=== PATIENT | male | born 1975 | race Caucasian/White ===

== ENCOUNTER 2018-06-15 13:38 | Emergency (ER) | payer OTHER, MEDICAID, SELFPAY ==
[2018-06-15 13:50] VITALS: BP 132/89; PULSE 80; RESP 18; TEMP 37; O2SAT 100; BMI 25.1
[2018-06-15 15:00] VITALS: BP 134/85; PULSE 65; O2SAT 100
--- NOTE | 2018-06-15 15:12 | ED.ABDPAIN ---
HPI - Abdominal Pain <VITALIY Penn - Last Filed: 06/15/18 22:24> General Chief Complaint: Abdominal Pain Stated Complaint: LEFT SIDE ABD PAIN Time Seen by Provider: 06/15/18 15:12 Source: patient Mode of arrival: ambulatory Limitations: no limitations History of Present Illness HPI narrative: [age] year old healthy male that is a former smoker here for complaint of right-sided abdominal pain that started yesterday. He denies any urinary symptoms. He states his last bowel movement was earlier today and was negative. No nausea or vomiting. He reports increased pain with motion to that area. He denies any trauma to the abdomen. 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 No flank pain. No fevers no chills. No other concerns or complaints at this time. MD complaint: abdominal pain Related Data Home Medications Medication Instructions Recorded Confirmed No Known Home Medications 06/15/18 06/15/18 Allergies Allergy/AdvReac Type Severity Reaction Status Date / Time No Known Drug Allergies Allergy Verified 06/15/18 13:56 Review of Systems <VITALIY Penn - Last Filed: 06/15/18 22:24> Constitutional Denies chills, Denies fever(s), Denies lethargy and Denies weakness Eyes Denies change in vision, Denies eye discharge, Denies irritation and Denies loss of vision ENT Ears, Nose, Mouth, and Throat: Denies change in voice, Denies neck pain and Denies sore throat Cardiovascular Denies chest pain, Denies irregular heart rhythm, Denies lightheadedness, Denies palpitations, Denies dyspnea, Denies dyspnea on exertion and Denies orthopnea Respiratory Denies cough, Denies dyspnea, Denies dyspnea on exertion and Denies wheezing Gastrointestinal Gastrointestinal: Reports abdominal pain Genitourinary Denies hematuria, Denies flank pain, Denies urinary incontinence and Denies urinary urgency Musculoskeletal Denies neck pain Integumentary/Breasts Denies pruritus, Denies erythema, Denies rash and Denies wounds Neurologic Denies confusion, Denies loss of vision and Denies weakness Psychiatric Denies anxiety, Denies confusion, Denies depression, Denies homicidal ideation and Denies suicidal ideation Endocrine Denies palpitations Hematologic/Lymphatic Denies easy bruising Allergic/Immunologic Denies wheezing Exam <VITALIY Penn - Last Filed: 06/15/18 22:24> Initial Vital Signs Initial Vital Signs: Vital Signs Temperature 98.6 F 06/15/18 13:50 Pulse Rate 80 06/15/18 13:50 Respiratory Rate 18 06/15/18 13:50 Blood Pressure 132/89 06/15/18 13:50 Pulse Oximetry 100 06/15/18 13:50 Const General: cooperative and well developed Nutritional Appearance: well nourished Orientation: alert, awake, oriented x3 and not confused [facility] Mouth: oral mucosae normal and moist mucous membranes Eyes Conjunctivae: conjunctivae normal Sclera: sclerae normal Pupils: PERRL EOM: EOM intact bilaterally Neck Neck: normal visual inspection, trachea midline, No lymphadenopathy, No midline deformity and No JVD Lymphatic: No lymphedema Resp Effort & Inspection: normal respiratory effort, able to speak in complete sentences, no respiratory distress and no use of accessory muscles Auscultation: clear to auscultation bilaterally, no rales, no rhonchi and no wheezes Cardio Rate: regular rate Rhythm: regular rhythm Heart Sounds: no click, no gallops, no murmurs and no rubs Pulses: normal peripheral pulses GI Inspection: non-distended Palpation: soft, no hepatosplenomegaly, No guarding, No pulsatile mass and tender (Tenderness to right upper quadrant) Auscultation: normal bowel sounds General: No CVA tenderness Skin General: no rashes or lesions noted, No jaundice and No petechiae Neuro General: alert, oriented x3, gait normal and no focal motor deficits Speech: speech normal <Cely Deng DO - Last Filed: 06/21/18 06:18> Initial Vital Signs Initial Vital Signs: Vital Signs Temperature 98.6 F 06/15/18 13:50 Pulse Rate 80 06/15/18 13:50 Respiratory Rate 18 06/15/18 13:50 Blood Pressure 132/89 06/15/18 13:50 Pulse Oximetry 100 06/15/18 13:50 Course <VITALIY Penn - Last Filed: 06/15/18 22:24> Orders Ordered: Discontinued Medications Sodium Chloride (Normal Saline 0.9%) 1,000 mls @ 1,000 mls/hr IV BOLUS ONE Stop: 06/15/18 16:36 Last Infusion: 06/15/18 16:38 Dose: 0 mls/hr Admin: 06/15/18 15:51 Dose: 1,000 mls/hr Vital Signs - 8 hr 06/15/18 15:00 06/15/18 16:49 06/15/18 17:00 Pulse Rate 65 60 58 L Respiratory Rate 14 Blood Pressure [Right Arm] 134/85 141/89 H 137/81 Pulse Oximetry 100 100 100 <Cely Deng DO - Last Filed: 06/21/18 06:18> Orders Ordered: Discontinued Medications Sodium Chloride (Normal Saline 0.9%) 1,000 mls @ 1,000 mls/hr IV BOLUS ONE Stop: 06/15/18 16:36 Last Infusion: 06/15/18 16:38 Dose: 0 mls/hr Admin: 06/15/18 15:51 Dose: 1,000 mls/hr Vital Signs - 8 hr 06/15/18 15:00 06/15/18 16:49 06/15/18 17:00 Pulse Rate 65 60 58 L Respiratory Rate 14 Blood Pressure [Right Arm] 134/85 141/89 H 137/81 Pulse Oximetry 100 100 100 MDM - Abdominal Pain <VITALIY Penn - Last Filed: 06/15/18 22:24> Lab Data Result diagrams: 06/15/18 15:40 06/15/18 15:40 Lab Results 06/15/18 06/15/18 06/15/18 Range/Units 15:40 15:40 15:40 WBC 6.4 (4.5-11.0) X10^3/uL RBC 4.96 (4.5-5.9) X10^6/uL Hgb 15.6 (13.5-17.5) g/dL Hct 45.5 (41-53) % MCV 91.7 (80-100) fL MCH 31.4 (26-34) PG MCHC 34.3 (30-36) % RDW 12.9 (11.6-14.8) % Plt Count 220 (150-400) X10^3/uL Neut % (Auto) 63.9 (50-75) % Lymph % (Auto) 26.5 (25-40) % Towns % (Auto) 7.2 (3-14) % Eos % (Auto) 1.9 L (2-4) % Baso % (Auto) 0.5 (0-2) % Neut # (Auto) 4100 (3555-3594) /uL PT 10.4 (10.1-12.7) SECONDS INR 1.0 (0.9-1.3) APTT 28 (26.4-36.2) SECONDS Sodium 144 (137-145) mmol/L Potassium 3.9 (3.4-5.1) mmol/L Chloride 99 (98-107) mmol/L Carbon Dioxide 33 H (22-32) mmol/L BUN 13 (9-20) mg/dL Creatinine 1.00 (0.66-1.25) mg/dL Estimated GFR > 60.0 (>60) mL/min BUN/Creatinine Ratio 13.0 (6-22) Glucose 91 (70-100) mg/dL Calcium 9.6 (8.4-10.2) mg/dL Total Bilirubin 0.4 (0.2-1.3) mg/dL AST 30 (17-59) IU/L ALT 37 (21-72) IU/L Alkaline Phosphatase 36 L (38-126) U/L Total Protein 8.2 (6.3-8.2) g/dL Albumin 4.9 (3.5-5.0) g/dL Globulin 3.3 (1.7-4.1) g/dL Albumin/Globulin Ratio 1.5 (1.0-2.8) Lipase 334 H (23-300) U/L Point of care testing: Urine Dip Bedside Urine Glucose Negative Bedside Urine Bilirubin - Negative Bedside Urine Ketone - Negative Urine Specific [place] 1.015 Bedside Urine Occult Blood - Negative Bedside Urine pH 7.5 Bedside Urine Protein - Negative Bedside Urine Urobilinogen - Negative Bedside Urine Nitrite - Negative Bedside Urine Leukocytes - Negative Esterase Imaging Data US - abdomen: Radiologist's impression: [address] [address] Ultrasound Report Signed Patient: Gilles Singleton BMR#: [id number] : 1975Acct:[id number] Age/Sex: 43 / MDate of Service: 06/15/18 Loc: ED Accession Number: [id number] Procedure: US abdomen complete Ordering Provider: Marques Rucker PROCEDURE: US ABDOMEN COMPLETE INDICATIONS: Pain to right upper quadrant TECHNIQUE: Real-time scanning was performed of the abdominal and retroperitoneal organs, with image documentation. COMPARISON: None. FINDINGS: Liver: The liver is normal in size and demonstrates mildly increased echogenicity when compared to the right kidney. No focal liver lesions are identified. Gallbladder: The gallbladder is normal in size. There appears to be a small gallstone within the region of the neck of the gallbladder that measures approximately 6 mm in diameter. This area is not well-seen on this exam, however. Biliary ducts: Intrahepatic bile ducts are non-dilated. Extrahepatic bile duct caliber measures 4 mm. Normal is 6-7 mm or less in diameter, or 10 mm or less post-cholecystectomy. Pancreas: Visualized portions of the pancreas are sonographically normal. Spleen: Spleen is normal in size and homogeneous in echotexture. Kidneys: Kidneys are normal in size and echotexture. Right kidney measures 11.5 cm long; left kidney measures 12.9 cm long. No hydronephrosis or shadowing nephrolithiasis. No solid masses. There is a complex cyst identified involving the mid aspect of the right kidney, which may contain calcifications, measuring approximately 1.7 cm in diameter. Aorta: Visualized aorta is normal in caliber at less than 3 cm. Iliacs: Obscured by bowel gas. IVC: Intrahepatic inferior vena cava is patent. Miscellaneous: No free abdominal fluid. IMPRESSION: 1. Probable cholelithiasis. No evidence of acute cholecystitis. 2. Mild hepatic steatosis. 3. Mildly complex right renal cyst. On a nonemergent basis, a CT renogram is recommended for better characterization. Dictated by: Vernon Melgar M.D. on 06/15/2018 at 15:42 Approved by: Vernon Melgar M.D. on 06/15/2018 at 15:45 MDM Narrative Medical decision making narrative: CBC was obtained was unremarkable. Chem panel shows mildly elevated lipase at 334. Ultrasound of the right upper quadrant was obtained and shows that there is a cholelithiasis however no signs of cholecystitis. Biliary ducts are nondistended. Ultrasound presents with fatty liver. Renal cyst is seen on the right kidney. Otherwise ultrasound is unremarkable. Patient to follow up with primary care provider for evaluation of renal cyst. Pain into right upper quadrant presents as abdominal wall pain. [id number] Tylenol or Motrin as needed for discomfort. Rest area. Follow up with primary care provider next week. Return emergency room for any worsening symptoms. <Cely Deng, - Last Filed: 06/21/18 06:18> Lab Data Lab Results 06/15/18 06/15/18 06/15/18 Range/Units 15:40 15:40 15:40 WBC 6.4 (4.5-11.0) X10^3/uL RBC 4.96 (4.5-5.9) X10^6/uL Hgb 15.6 (13.5-17.5) g/dL Hct 45.5 (41-53) % MCV 91.7 (80-100) fL MCH 31.4 (26-34) PG MCHC 34.3 (30-36) % RDW 12.9 (11.6-14.8) % Plt Count 220 (150-400) X10^3/uL Neut % (Auto) 63.9 (50-75) % Lymph % (Auto) 26.5 (25-40) % Towns % (Auto) 7.2 (3-14) % Eos % (Auto) 1.9 L (2-4) % Baso % (Auto) 0.5 (0-2) % Neut # (Auto) 4100 (9531-7016) /uL PT 10.4 (10.1-12.7) SECONDS INR 1.0 (0.9-1.3) APTT 28 (26.4-36.2) SECONDS Sodium 144 (137-145) mmol/L Potassium 3.9 (3.4-5.1) mmol/L Chloride 99 (98-107) mmol/L Carbon Dioxide 33 H (22-32) mmol/L BUN 13 (9-20) mg/dL Creatinine 1.00 (0.66-1.25) mg/dL Estimated GFR > 60.0 (>60) mL/min BUN/Creatinine Ratio 13.0 (6-22) Glucose 91 (70-100) mg/dL Calcium 9.6 (8.4-10.2) mg/dL Total Bilirubin 0.4 (0.2-1.3) mg/dL AST 30 (17-59) IU/L ALT 37 (21-72) IU/L Alkaline Phosphatase 36 L (38-126) U/L Total Protein 8.2 (6.3-8.2) g/dL Albumin 4.9 (3.5-5.0) g/dL Globulin 3.3 (1.7-4.1) g/dL Albumin/Globulin Ratio 1.5 (1.0-2.8) Lipase 334 H (23-300) U/L Point of care testing: Urine Dip Bedside Urine Glucose Negative Bedside Urine Bilirubin - Negative Bedside Urine Ketone - Negative Urine Specific [place] 1.015 Bedside Urine Occult Blood - Negative Bedside Urine pH 7.5 Bedside Urine Protein - Negative Bedside Urine Urobilinogen - Negative Bedside Urine Nitrite - Negative Bedside Urine Leukocytes - Negative Esterase Discharge Plan Departure Patient Disposition: Home Clinical Impression: Abdominal pain Discharge Date/Time: 06/15/18 18:12 Interventions: ED Discharge Assessment Last Done: 06/15/18 18:11 Instructions: DI for Abdominal Muscle Strain Activity Restrictions/Additional Instructions: Laboratory results today showed mildly elevated lipase otherwise is unremarkable. Ultrasound of the the area pain to the abdomen shows a gallstone however is not appear to pee passing at this timeframe and does not appear that you're gallbladder is inflamed. Signs and symptoms presents as abdominal wall pain. Use [id number] Tylenol or Motrin as needed for any discomfort. Rest area. Follow up with her primary care provider next week. Ultrasound does show a cyst to the right kidney. This will need to be looked at further such as in CT discuss this with your primary care provider. Ultrasound also shows evidence of a fatty liver. Also follow up with primary care provider for this. For any worsening symptoms return to the emergency room. Prescriptions: No Action No Known Home Medications RF: 0 Referrals: Geraldine Dubois PA-C [Primary Care Provider] - <Cely Deng DO - Last Filed: 06/21/18 06:18> Cosign ED Attending Cosignature Attestation: I was immediately available in the department for consultation. This documentation has been reviewed and I agree with assessment and plan. Supervised by Cely Deng DO
--- NOTE | 2018-06-15 15:38 | DI.US.S_ITS ---
PROCEDURE: US ABDOMEN COMPLETE INDICATIONS: Pain to right upper quadrant TECHNIQUE: Real-time scanning was performed of the abdominal and retroperitoneal organs, with image documentation. COMPARISON: None. FINDINGS: Liver: The liver is normal in size and demonstrates mildly increased echogenicity when compared to the right kidney. No focal liver lesions are identified. Gallbladder: The gallbladder is normal in size. There appears to be a small gallstone within the region of the neck of the gallbladder that measures approximately 6 mm in diameter. This area is not well-seen on this exam, however. Biliary ducts: Intrahepatic bile ducts are non-dilated. Extrahepatic bile duct caliber measures 4 mm. Normal is 6-7 mm or less in diameter, or 10 mm or less post-cholecystectomy. Pancreas: Visualized portions of the pancreas are sonographically normal. Spleen: Spleen is normal in size and homogeneous in echotexture. Kidneys: Kidneys are normal in size and echotexture. Right kidney measures 11.5 cm long; left kidney measures 12.9 cm long. No hydronephrosis or shadowing nephrolithiasis. No solid masses. There is a complex cyst identified involving the mid aspect of the right kidney, which may contain calcifications, measuring approximately 1.7 cm in diameter. Aorta: Visualized aorta is normal in caliber at less than 3 cm. Iliacs: Obscured by bowel gas. IVC: Intrahepatic inferior vena cava is patent. Miscellaneous: No free abdominal fluid. IMPRESSION: 1. Probable cholelithiasis. No evidence of acute cholecystitis. 2. Mild hepatic steatosis. 3. Mildly complex right renal cyst. On a nonemergent basis, a CT renogram is recommended for better characterization. Dictated by: Vernon Melgar M.D. on 06/15/2018 at 15:42 Approved by: Vernon Melgar M.D. on 06/15/2018 at 15:45
[2018-06-15 15:49] LABS: Add Manual Diff / Slide Review NO; Basophils Percent Auto 0.5 % (0-2); Eosinophils Percent Auto 1.9 % (2-4); Hematocrit 45.5 % (41-53); Hemoglobin 15.6 g/dL (13.5-17.5); Lymphocytes Percent Auto 26.5 % (25-40); Mean Corpuscular HGB Conc 34.3 % (30-36); Mean Corpuscular Hemoglobin 31.4 PG (26-34); Mean Corpuscular Volume 91.7 fL (80-100); Monocytes Percent Auto 7.2 % (3-14); Neutrophils Absolute Auto 4100 /uL (3000-5900); Neutrophils Percent Auto 63.9 % (50-75); Platelet Count 220 X10^3/uL (150-400); Red Blood Cell Count 4.96 X10^6/uL (4.5-5.9); Red Cell Distribution Width 12.9 % (11.6-14.8); White Blood Cell Count 6.4 X10^3/uL (4.5-11.0)
[2018-06-15] MEDS: SODIUM CHLORIDE 0.9% 1,000 ML 1000 ML IV (15:51)
[2018-06-15 16:00] LABS: Prothrombin Time 10.4 SECONDS (10.1-12.7)
[2018-06-15 16:02] LABS: PTT Partial Thromboplastin Tim 28 SECONDS (26.4-36.2)
[2018-06-15 16:03] LABS: Alanine Aminotransferase 37 IU/L (21-72); Albumin 4.9 g/dL (3.5-5.0); Albumin Globulin Ratio 1.5 (1.0-2.8); Alkaline Phosphatase 36 U/L (38-126); Aspartate Aminotransferase 30 IU/L (17-59); Bilirubin Total 0.4 mg/dL (0.2-1.3); Blood Urea Nitrogen 13 mg/dL (9-20); Calcium 9.6 mg/dL (8.4-10.2); Carbon Dioxide 33 mmol/L (22-32); Chloride 99 mmol/L (98-107); Estimated Glomerular Filt Rate > 60.0 mL/min (>60); Globulin 3.3 g/dL (1.7-4.1); Glucose 91 mg/dL (70-100); HEMOLYSIS < 15 (0-50); Lipase 334 U/L (23-300); Potassium 3.9 mmol/L (3.4-5.1); Sodium 144 mmol/L (137-145); Total Protein 8.2 g/dL (6.3-8.2)
[2018-06-15 16:49] VITALS: BP 141/89; PULSE 60; RESP 14; O2SAT 100
[2018-06-15 17:00] VITALS: BP 137/81; PULSE 58; O2SAT 100
== END 2018-06-15 18:12 | disposition home or self-care (01) ==
PROVIDERS: Emergency Provider Nurse Practitioner Family; PCP Physician Assistant Medical
DX: R10.9 Unspecified abdominal pain (principal)
CPT/HCPCS: 36591; 76700; 80053; 81003; 83690; 85025; 85610; 85730; 96360; 99283; 99284

== ENCOUNTER 2018-07-05 19:48 | Emergency (ER) | payer OTHER, MEDICAID, SELFPAY ==
[2018-07-05 19:48] VITALS: BP 151/97; PULSE 91; RESP 20; TEMP 36.9; O2SAT 95
--- NOTE | 2018-07-05 20:02 | DI.RAD.S_ITS ---
PROCEDURE: XR ANKLE LT MIN 3V INDICATIONS: pain s/p twisting ankle TECHNIQUE: 3 views of the ankle were acquired. COMPARISON: None. FINDINGS: Bones: No fractures or dislocations. Ankle mortise is normally aligned. No suspicious bony lesions. Soft tissues: Small tibiotalar joint effusion. IMPRESSION: #1. No acute fracture or dislocation of the left ankle. Consider followup radiographs in 7-10 days if there is continued clinical concern. #2. Small left ankle joint effusion. Dictated by: Murray Rasmussen M.D. on 07/05/2018 at 21:40 Approved by: Murray Rasmussen M.D. on 07/05/2018 at 21:42
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
[2018-07-05 20:35] VITALS: BP 151/97; PULSE 91; RESP 20; TEMP 36.9; O2SAT 95
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
== END 2018-07-05 20:50 | disposition home or self-care (01) ==
PROVIDERS: Emergency Provider Emergency Medicine; Family Provider Physician Assistant Medical; PCP Physician Assistant Medical
DX: S93.402A Sprain of unspecified ligament of left ankle, initial encounter (principal); S96.912A Strain of unspecified muscle and tendon at ankle and foot level, left foot, initial encounter; W23.0XXA Caught, crushed, jammed, or pinched between moving objects, initial encounter
CPT/HCPCS: 73610; 99283

== ENCOUNTER 2019-04-26 11:24 | Emergency (ER) | payer OTHER, MEDICAID, SELFPAY ==
[2019-04-26 11:30] VITALS: BP 152/97; PULSE 70; RESP 14; TEMP 36.4; O2SAT 98
--- NOTE | 2019-04-26 11:43 | DI.RAD.S_ITS ---
PROCEDURE: XR KNEE LT 3V INDICATIONS: pain / swelling after fall TECHNIQUE: 3 views of the knee were acquired. COMPARISON: [facility], CR, XR KNEE ARTHRITIC SERIES LT, 04/20/2017, 10:18. FINDINGS: Bones: Postsurgical changes are present related to prior ACL reconstruction. No acute fracture or dislocation is identified. No suspicious osseous lesions are present. Soft tissues: There is a large knee joint effusion. Metallic densities along the anterior aspect of the distal thigh and the anterior aspect of the proximal tibia have not changed in position. IMPRESSION: 1. No acute fractures. 2. Prominent knee effusion. The need for better evaluation utilizing MRI may be determined clinically. Dictated by: Vernon Melgar M.D. on 04/26/2019 at 11:07 Approved by: Vernon Melgar M.D. on 04/26/2019 at 11:08
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
--- NOTE | 2019-04-26 12:23 | ED_ITS ---
HPI - Extremity Injury (Lower) <ROOSEVELT PollardP - Last Filed: 04/27/19 02:46> General Chief Complaint: Extremity Injury, Lower Stated Complaint[place] pain Time Seen by Provider: 04/26/19 11:46 Source: patient Mode of arrival: other (crutches) Limitations: no limitations History of Present Illness HPI Narrative: This is a 43-year-old male, nonsmoker, presents with significant other with chief complain of left knee pain. He had injured yesterday after fall when embankment collapsed and he sled down and averted his L foot after his foot caught. Patient reports had a surgery of ACL repair on same knee in the past. He reports unable to bear his weight after the injury because of the pain. He reports had sensation, moved his toes on left foot. He denies any other injuries such as on his head, neck, other musculoskeletal areas. Related Data Home Medications Medication Instructions Recorded Confirmed acyclovir 400 mg PO DAILY 04/26/19 04/26/19 Previous Rx's Medication Instructions Recorded hydrocodone-acetaminophen [[place]] 1 tab PO Q6H PRN #7 tab 04/26/19 Allergies Allergy/AdvReac Type Severity Reaction Status Date / Time No Known Drug Allergies Allergy Verified 06/15/18 13:56 Review of Systems <ROOSEVELT PollardP - Last Filed: 04/27/19 02:46> Review of Systems General: Denies fever, chills, fatigue, malaise, sweats. HEENT: Denies sinus pain, ear pain, sore throat, difficulty swallowing, dizziness. Respiratory: Denies dyspnea, cough, wheezing, hemoptysis, sputum. Cardiovascular: Denies chest pain, palpitations, orthopnea, edema. Gastrointestinal: Denies nausea, vomiting, abdominal pain, diarrhea, constipation, melena. : Denies dysuria, frequency, incontinence, hematuria, urinary retention. Musculoskeletal: See HPI Skin: Denies rash, skin lesions, or other. Neurologic: Denies weakness, headache, numbness, change in speech, confusion, seizures, incoordination. Psychiatric: No concerning psychosocial issues. 12-point review of systems is negative except for those stated above. PFSH <ROOSEVELT PollardP - Last Filed: 04/27/19 02:46> Surgical History (Updated 04/27/19 @ 02:40 by VITALIY Pollard) History of repair of ACL (Chronic) History of surgery on wrist (Chronic) Social History Smoking Status: Former smoker Social History Smoking Status: Former smoker Exam <VITALIY Pollard - Last Filed: 04/27/19 02:46> Narrative Exam Narrative: General appearance: well developed, well nourished, in no acute distress. Head: normocephalic, atraumatic, no scalp lesions, non-tender. Eye: pupil equal, round. EOMI. Nose: nares patent. Oral: mucosa moist. Neck/Thyroid: neck supple, full range of motion, no visible masses. Skin: no suspicious rashes, lesions over visible areas. Warm and dry. Heart: no clubbing, no cyanosis, no edema. Lungs: Breathing even and unlabored. No stridor. No accessory muscles used. Chest: normal shape and expansion. Abdomen: non-obese, non-distended. Neurologic: alert and oriented. Cognitive exam, ENERGY ENGINEER and PNS grossly intact on informal exam. Psych: good eye contact, normal affect. Initial Vital Signs Initial Vital Signs: Vital Signs Temperature 97.5 F L 04/26/19 11:30 Pulse Rate 70 04/26/19 11:30 Respiratory Rate 14 04/26/19 11:30 Blood Pressure 152/97 H 04/26/19 11:30 Pulse Oximetry 98 04/26/19 11:30 Extrem Right lower extremity: normal to inspection Left lower extremity: knee Details: abnormal to inspection, tenderness, swelling (anterior medial aspect) and abnormal ROM; no abrasions, no lacerations, no ecchymosis and no unusual warmth and foot Details: normal capillary refill, normal to inspection, toes with normal ROM, no edema and motor-sensory exam; no tenderness and no unusual warmth <Micah Mendez DO - Last Filed: 04/27/19 07:34> Initial Vital Signs Initial Vital Signs: Vital Signs Temperature 97.5 F L 04/26/19 11:30 Pulse Rate 70 04/26/19 11:30 Respiratory Rate 14 04/26/19 11:30 Blood Pressure 152/97 H 04/26/19 11:30 Pulse Oximetry 98 04/26/19 11:30 Procedures <VITALIY Pollard - Last Filed: 04/27/19 02:46> Orthopedic Splinting/Casting Injury #1: Side: left Lower Extremity Injury Location: knee Lower Extremity Immobilizer: knee immobilizer Additional Comments: Pt has own crutches Course <VITALIY Pollard - Last Filed: 04/27/19 02:46> Orders Ordered: Discontinued Medications Hydrocodone Bitart/Acetaminophen ([place] 5/325) 1 tab PO NOW ONE Stop: 04/26/19 12:26 Last Admin: 04/26/19 12:35 Dose: 1 tab Vital Signs - 8 hr 04/26/19 11:30 Temperature 97.5 F L Pulse Rate 70 Respiratory Rate 14 Blood Pressure 152/97 H Pulse Oximetry 98 <Micah Mendez DO - Last Filed: 04/27/19 07:34> Orders Ordered: Discontinued Medications Hydrocodone Bitart/Acetaminophen ([place] 5/325) 1 tab PO NOW ONE Stop: 04/26/19 12:26 Last Admin: 04/26/19 12:35 Dose: 1 tab Vital Signs - 8 hr 04/26/19 11:30 Temperature 97.5 F L Pulse Rate 70 Respiratory Rate 14 Blood Pressure 152/97 H Pulse Oximetry 98 MDM - Extremity Injury (Lower) <Sin PanchalROOSEVELT ShortP - Last Filed: 04/27/19 02:46> Differential Diagnosis Likely ankle sprain and strain and other (patella dislocation, ACL/MCL injury) Medical Records Attestation: I reviewed the patient's medical records. Imaging Data XR-Knee L: Radiologist's impression: Chart Viewer Diagnostics DATE TYPE STATUS AUTHOR Hx 04/26/19 11:43 Vernon Melgar 07/05/18 20:02 Murray Rasmussen 06/15/18 15:38 Vernon Melgar Garner B 43, M0 1975 REG ER, ED.LOC - Main ED: R13 74.843kg Extremity Injury, Lower Search Chart No Data to Display No Data to Display Today 11:30 Gilles Singleton 43 M [address] [address] XRay Report Signed Patient: Gilles Singleton BMR#: [id number] : 1975Acct:[id number] Age/Sex: 43 / MDate of Service: 04/26/19 Loc: ED Accession Number: [id number] Procedure: XR knee LT 3V Ordering Provider: Micah Mednez D.O. PROCEDURE: XR KNEE LT 3V INDICATIONS: pain / swelling after fall TECHNIQUE: 3 views of the knee were acquired. COMPARISON: [facility], CR, XR KNEE ARTHRITIC SERIES LT, 04/20/2017, 10:18. FINDINGS: Bones: Postsurgical changes are present related to prior ACL reconstruction. No acute fracture or dislocation is identified. No suspicious osseous lesions are present. Soft tissues: There is a large knee joint effusion. Metallic densities along the anterior aspect of the distal thigh and the anterior aspect of the proximal tibia have not changed in position. IMPRESSION: 1. No acute fractures. 2. Prominent knee effusion. The need for better evaluation utilizing MRI may be determined clinically. Dictated by: Vernon Melgar M.D. on 04/26/2019 at 11:07 Approved by: Vernon Melgar M.D. on 04/26/2019 at 11:08 [facility] Narrative Medical decision making narrative: This 43-year-old gentleman who presents with left knee pain in anterior, medial knee. He has some swelling to anterior- medial, superior to patella on right knee. Patient reports pain with weight- bearing and range of motion. He is concerned since he had left knee ACL repair in the past. He denies any other injuries including left foot, ankle. Left knee x-ray was obtained and indicates no acute fractures at this time but there was prominent knee effusion. Patient was placed on the immobilizer. Advised to use ice pack and to use Tylenol and/or Motrin as needed for discomfort and [place] was prescribed for severe pain. Discussed narcotic pain medication precautions with patient. Patient already has crutches at home that he declines a set from ED today. Patient is referred to [facility] orthopedist to follow up and may need further imaging test if his pain persists. No further questions expressed at this time and patient and significant other agree with treatment plan. Discharge Plan Departure Patient Disposition: Home Clinical Impression: Ankle sprain and strain Discharge Date/Time: 04/26/19 12:49 Interventions: ED Discharge Assessment Last Done: 04/26/19 12:49 Instructions: DI for Knee Pain Activity Restrictions/Additional Instructions: You have been diagnosed with [ L knee pain and swelling. According to the xray, there is not fracture, dislocation. However there is some prominent knee effusion. You may need MRI test which can be arranged by your PCP if your pain persists ]. What to do: *Take your medications as directed. Please take [id number] Tylenol and or Motrin as needed for inflammation and pain. He can take B[place]erton as needed for severe pain. This medication contains Tylenol already. Please do not drive, drink alcohol, operate heavy equipment while on B[place]erton. This medication can cause constipation as well. *Follow up with your primary care provider in 2-3 days, call for an appointment. Let them know you were seen in the ED and that we asked you to be seen in follow up. *Return to ED if you have any new, worsening, or concerning symptoms, such as [severe pain, tingling numbness/weakness to your left foot, chest pain, breathing difficulty, unable to tolerate fluids, any acute concerns]. Prescriptions: New hydrocodone-acetaminophen [[place]] 5-325 mg tablet 1 tab PO Q6H PRN (Reason: pain) Qty: 7 RF: 0 No Action acyclovir 400 mg tablet 400 mg PO DAILY RF: 0 Referrals: [facility] [Outside] Geraldine Dubois PA-C [Primary Care Provider] - <Micah Mendez DO - Last Filed: 04/27/19 07:34> [facility] Attestation: I was available for consultation during this patient's emergency department encounter
[2019-04-26] MEDS: HYDROCODONE/ACET 5/325 TABLET 1 TAB PO (12:35)
== END 2019-04-26 12:49 | disposition home or self-care (01) ==
PROVIDERS: Emergency Provider Nurse Practitioner Family; Family Provider Physician Assistant Medical; PCP Physician Assistant Medical
DX: S93.402A Sprain of unspecified ligament of left ankle, initial encounter (principal); S96.912A Strain of unspecified muscle and tendon at ankle and foot level, left foot, initial encounter
CPT/HCPCS: 73562; 99283

== ENCOUNTER 2019-08-23 07:53 | Day surgery (SDC) | payer OTHER, MEDICAID, SELFPAY ==
--- NOTE | 2019-08-23 | PATH_ITS ---
[facility] Accession Number: [id number] . 01 Material submitted: . PART A: colon - RIGHT COLON BIOPSIES PART B: colon - TRANSVERSE COLON BIOPSIES PART C: colon - DESCENDING COLON BIOPSIES PART D: colon - RECTAL SIGMOID BIOPSIES . 02 Diagnosis: A-D: Right Colon, Transverse Colon, Descending Colon, Rectosigmoid, Biopsies: Colonic mucosa with no diagnostic abnormality. Negative for active, chronic, and microscopic colitis. Negative for dysplasia and malignancy. . MRV 08/26/2019 1017 Local . 02 Electronically signed: . Patricia Steele MD, Pathologist NPI- [id number] . 01 Gross description: . Part A: RIGHT COLON BIOPSIES: Received in formalin are 2 fragment(s) of belle, soft tissue measuring 0.3 x 0.2 x 0.2 cm to 0.2 x 0.1 x 0.1 cm submitted entirely in 1 cassette(s) Part B: TRANSVERSE COLON BIOPSIES: Received in formalin is 1 fragment(s) of belle, soft tissue measuring 0.3 x 0.2 x 0.2 cm submitted entirely in 1 cassette(s) Part C: DESCENDING COLON BIOPSIES: Received in formalin are 3 fragment(s) of belle, soft tissue measuring 0.3 x 0.2 x 0.2 cm to 0.3 x 0.2 x 0.1 cm submitted entirely in 1 cassette(s) Part D: RECTAL SIGMOID BIOPSIES: Received in formalin are 2 fragment(s) of belle, soft tissue measuring 0.3 x 0.2 x 0.2 cm to 0.2 x 0.1 x 0.1 cm submitted entirely in 1 cassette(s) /QBJ 08/23/20192049 Local . 02 Pathologist provided ICD-10: R10.9 . 02 CPT . 186547, 586197, 046021, 516635 Performed at: 01 [facility] [address] [place] [address], [place], [place] [id number] MD Elvis Donis MD Phone: [phone] Performed at: 02 [facility] [address] [place], [place] [id number] MD Patricia Steele MD Phone: [phone]
[2019-08-23 08:04] VITALS: BP 129/90; PULSE 63; RESP 16; TEMP 36.6; O2SAT 99; BMI 20.8
[2019-08-23] MEDS: SODIUM CHLORIDE 0.9% 1,000 ML 200 ML IV (08:38)
--- NOTE | 2019-08-23 09:07 | PM.PREOP ---
Pre-operative Note Interval Note History & Physical reviewed/Exam performed by Physician: Yes Changes to H&P: No ASA Class (for procedural sedation): II
--- NOTE | 2019-08-23 09:51 | PM.OP.ENDO ---
Operative Date/Time/Diagnoses Date of procedure: 08/23/19 Time of procedure: 09:51 Pre-op diagnosis: Chronic abdominal pain, questionable history of diverticulosis Post-op diagnosis: other (Normal appearing colon, no diverticula, low-grade hemorrhoids) Procedure & Clinicians Study performed: Colonoscopy, random biopsies from ascending, transverse, descending, and rectosigmoid colon Same procedure as scheduled: Yes Indications: Chronic abdominal pain Surgeon: Zoe Christina Procedure Notes SCOAP/Timeout: Performed Procedure in detail: The patient was brought to the room and placed in left lateral decubitus position with all bony prominences padded. A time-out was performed and then the patient was given procedural sedation starting with 4 mg of Versed and 100 mcg of fentanyl. A total of 7 mg of Versed and 200 micro g of fentanyl were given during the course of the procedure. Vitals were monitored throughout the procedure and remained stable. Once adequately sedated the procedure was begun. A rectal exam was performed revealing no abnormalities. The colonoscope was then introduced to the rectum and advanced to the cecum in the usual fashion. The cecum was identified by the appendiceal orifice, the mucosal try fold, and the ileocecal valve. The scope was then retracted while rotating side to side and examining each mucosal fold. The colonic mucosa appeared normal. Random biopsies were taken from right colon, transverse, descending colon, and rectosigmoid. The colon was very twisted and redundant, but otherwise appeared normal. At the conclusion procedure retroflexion was performed and small grade 1-2 internal hemorrhoids without stigmata of bleeding were seen. The scope was then withdrawn from the rectum the procedure was concluded. The patient tolerated the procedure well was transferred to the PACU in stable condition. Scope withdrawal time: 14 Sedation minutes: 28 Specimen(s): other (Random biopsies from ascending, transverse, descending, and rectosigmoid colon) Complications: none Impression: Normal appearing colonic mucosa Post-procedure Recommendations: Colonscopy in 10 years (Depending on pathology results) Follow up: as needed Disposition: PACU
[2019-08-23] MEDS: ONDANSETRON 4 MG/2 ML INJ IV (09:54)
[2019-08-23] MEDS: fentaNYL 250 MCG/5 ML INJ IV (09:54)
[2019-08-23] MEDS: MIDAZOLAM 5 MG/5 ML VIAL IV (09:54)
[2019-08-23 09:56] VITALS: BP 147/97; PULSE 56; RESP 20; TEMP 36.5; O2SAT 100
[2019-08-23 10:01] VITALS: BP 147/98; PULSE 63; RESP 18; O2SAT 100
[2019-08-23 10:06] VITALS: BP 131/90; PULSE 64; RESP 19; O2SAT 98
[2019-08-23 10:11] VITALS: BP 121/83; PULSE 64; RESP 20; TEMP 36.5; O2SAT 98
[2019-08-23 10:16] VITALS: BP 130/85; PULSE 64; RESP 15; TEMP 36.4; O2SAT 100
== END 2019-08-23 10:33 | disposition home or self-care (01) ==
PROVIDERS: Family Provider Physician Assistant Medical; PCP Physician Assistant Medical; Visit Provider Surgery
PROC: 0DJD8ZZ Inspection of Lower Intestinal Tract, Via Natural or Artificial Opening Endoscopic (ICD-10-PCS; CPT 45378; principal; 2019-08-23 09:15)
DX: R10.12 Left upper quadrant pain (principal); K64.0 First degree hemorrhoids
CPT/HCPCS: 45380; 99152; 99153; J2250; J2405; J3010

== ENCOUNTER 2020-06-12 08:15 | Outpatient (RCR) | payer OTHER, MEDICAID, SELFPAY ==
--- NOTE | 2020-05-04 15:36 | PT.OIE ---
Current Diagnoses Complex tear of medial meniscus, current injury, left knee, subsequent encounter (05/04/20) Sprain of anterior cruciate ligament of left knee, subsequent encounter (05/04/20) Past Surgical History (Last Reviewed 08/20/19 @ 17:48 by Zoe Christina MD) History of repair of ACL (Chronic) History of surgery on wrist (Chronic) Visit Care Team Role Provider Type Geraldine Dubois PA-C Family Provider Non-Staff Primary Care Provider Specialty: Medical Address: [facility] [address], [place], [address] Email: Raza Decker Attending Provider Non-Staff Referring Provider Specialty: Medical Address: [facility] [address], [place], [address] Email: Physical Therapy Initial Evaluation PT-OP-A Visit Information Start: 05/01/20 07:21 Freq: Status: Active Protocol: Document 05/04/20 07:26 MB (Rec: 05/04/20 08:07 MB [id number]) Out-Patient Physical Therapy Visit Information Visit Information Visit Type Initial Evaluation Visit Note [employer], eval charge only for eval Visit Start Time 07:30 Visit Stop Time 08:10 Total Visit Minutes 40 Visit Number 1 Evaluation Information Evaluation Date 05/04/20 PT-OP-B Current Condition Start: 05/01/20 07:21 Freq: Status: Active Protocol: Document 05/04/20 07:26 MB (Rec: 05/04/20 08:07 MB [id number]) Current Condition History of Current Condition Onset Date 1 year Current Complaints Left knee pain History of Current Condition History of left ACL injury and repair 15 years ago. Last summer, [place] [facility] and broke his distal femur, proximal tib fib , tore his ACL and meniscus. He was supposed to have surgery and it was cancelled d /t COVID. He re-injured it in March getting up from the floor . Pt has surgey on March 16. It was exploratory surgery and he had a bad medial meniscus tear and repair. He was on crutches 6 weeks. He went WBAT 6 days ago. He has not used crutches in a week. He was told not to pivot or turn on the left foot. 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 He has a brace. The swelling and internal pain has reduced. He has been icing. Pt rates pain up to 5/ 10 with hyperextension and is in the anterior and medial left knee. He had left ankle injury in the last year. Treatment Goals Patient/Caregiver Goals To get back to work PT-OP-C Subjective Start: 05/01/20 07:21 Freq: Status: Active Protocol: Document 05/04/20 07:26 MB (Rec: 05/04/20 08:14 MB [id number]) OP-PT Subjective Patient Comments Patient Comments See history of current condition Patient Reported Progress Improving Patient Questionnaires Lower Extremity Functional Scale LEFS Score 29 LEFS Impairment 60 to 79% Impaired (Score 17- 31) PT-OP-D Balance Start: 05/01/20 07:21 Freq: Status: Active Protocol: Document 05/04/20 07:26 MB (Rec: 05/04/20 14:15 MB [id number]) OP-PT Balance Assessment Sitting Balance Static Sitting Balance Ability Normal Dynamic Sitting Balance Ability Normal Standing Balance Static Standing Balance Ability Fair Dynamic Standing Balance Ability Fair Balance Tests Romberg Romberg Normal, EC normal Single Limb Standing Single Limb- Right 30 sec Single Limb- Left Unable Wright Fall Scale Copyright Permission PT-OP-G Mobility & Gait Start: 05/01/20 07:21 Freq: Status: Active Protocol: Document 05/04/20 07:26 MB (Rec: 05/04/20 14:15 MB [id number]) OP Gait Assessment Gait Gait Assistance Required: Independent Distance (Feet) 75 Assistive Devices Assistive Device None Gait Deviations General Gait Pattern Antalgic,Decreased Stride Length,Decreased Feet Clearance Factors Limiting Gait Function Factors Limiting Gait Function Limited Range of Motion,Pain, Poor Balance Comments Gait Comments Favors the left leg and presents with poor step-length and foot clearance, slow antalgic gait, decreased heel strike and left knee extension PT-OP-J Posture/Palpation/Skin Start: 05/01/20 07:21 Freq: Status: Active Protocol: Document 05/04/20 07:26 MB (Rec: 05/04/20 14:15 MB [id number]) Posture Evaluation Comments Posture Comments Standing: forward head, rounded shoulders, pronounced left patella and left quad and calf atrophy, decreased left knee extension in standing, pt with increased WB to the right foot, B foot supination with decreased Mundo angle, right iliac crest higher than the left and right thoracic convexity spine. Skin Assessment Other Assessments Skin Assessment Comments Scars around the left knee, mild edema with patellar changes PT-OP-K Range of Motion Start: 05/01/20 07:21 Freq: Status: Active Protocol: Document 05/04/20 07:26 MB (Rec: 05/04/20 14:15 MB [id number]) Knee Goniometric Range of Motion Knee Left Knee ROM WFL No Patient Position Supine Flexion Active (degrees) 115 Extension Active (degrees) 4 Right Knee ROM WFL Yes Patient Position Supine Flexion Active (degrees) 128 Extension Active (degrees) 0 Knee ROM Limitations Comments Left knee 4-115 deg AROM in supine PT-OP-M Strength Start: 05/01/20 07:21 Freq: Status: Active Protocol: Document 05/04/20 07:26 MB (Rec: 05/04/20 14:15 MB [id number]) Hip Strength Hip Manual Muscle Testing Left Flexion (L2) 5 Normal Abduction 3 Fair Right Flexion (L2) 5 Normal Abduction 3+ Fair+ Knee Strength Knee Manual Muscle Testing Left Comments Deferred d/t pt reports fear of pain Right Flexion (S2) 5 Normal Extension (L3) 5 Normal Ankle/Foot Strength Ankle and Foot Manual Muscle Testing Left Dorsiflexion (L4) 5 Normal Comments All other directions deferred d/t pt report fear of pain Right Dorsiflexion (L4) 5 Normal Inversion 4 Good Eversion (S1) 4 Good Comments PF with heel raises with hands on wall in standing 13 reps and then pt fatigues Toe Strength Toe Manual Muscle Testing Left Great Toe Extension 4 Good Right Great Toe Extension 5 Normal PT-OP-Q Treatments Start: 05/01/20 07:21 Freq: Status: Active Protocol: Document 05/04/20 07:26 MB (Rec: 05/04/20 14:15 MB [id number]) Therapeutic Exercises Supine Exercises HS stting and supine, AP, GS, passive extension with ankle on pillow, QS Side left Comments Ed pt on performance of these daily at home and provided handout Manual Therapy Treatment Taping Left knee Type of Tape Kinesio Tape Comments Black KT for support: c strip under left patella and B I strips medial and lateral knee PT-OP-T Assessment and Plan Start: 05/01/20 07:21 Freq: Status: Active Protocol: Document 05/04/20 07:26 MB (Rec: 05/04/20 14:15 MB [id number]) Physical Therapy Assessment Rehab Potential Rehabilitation Potential Good Evaluation Complexity Number of Personal Factors/Comorbidities 1-2 Number of Body Systems Impaired 1-2 Clinical Presentation at Evaluation Stable Impairments Impairments Balance,Edema,Gait,Pain, Posture,ROM,Soft Tissue Mobility,Strength Other Concerns Fall Risk No Goals 6 Residential Goal (LTG) Pt will perform SLS left leg at least 30 sec to improve balance by 07/04/2020. LTG Duration 8 weeks 5 Residential Goal (LTG) Pt will perform 13 reps heel raises left leg to improve strength and balance by 2019. LTG Duration 8 weeks 4 Residential Goal (LTG) Pt will present with B hip abduction, right knee flexion and extension strength to 5/5 to improve functional mobility and gait by 07/04/2020. LTG Duration 8 weeks 3 Residential Goal (LTG) Pt will perform progressive HEP with I including ROM, strengthening, flexibility, gait and balance exercises to improve strength by 07/04/2020 . 2 Legal Intern Goal (LTG) Pt will present with improved left knee AROM to at least 0- 126 deg to improve sit to stands by 07/04/2020. 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 LTG Duration 8 weeks Assessment Summary Assessment Pt is a 44 y/o male presenting with history of three knee injuries and is s/p left knee arthroscopic surgery last month. Pt presents with left knee pain, fear of pain and instability, postural changes, weakness, poor gait and balance. He will benefit from PT to improve flexibility, strength, balance and gait. PT ed pt on benefits of icing, compression, passive knee extension and ROM exercises today. Physical Therapy Plan Frequency and Duration Frequency of Treatment 2x/Week Duration of Treatment 8 weeks Plan of Care Start Date 05/04/20 Plan of Care End Date 07/06/20 Therapeutic Interventions Therapeutic Interventions Aquatic Therapy,Balance Training,Gait Training,Home Exercise Program,Manual Therapy,Neuromuscular Re- education,Patient/Caregiver Education,Self-Care/Home Management,Soft Tissue Mobilization,Taping, Therapeutic Exercises Modalities Cold Pack/Ice Massage,Electric Stimulation,Hot Packs, Ultrasound Next Visit Focus/Plan Next Note Type Treatment Note Next Visit Plan Review and progress exercises, flexibility
--- NOTE | 2020-05-04 15:36 | PT.OPPOC ---
Physical, Occupational & Speech Therapy At [facility] Current Diagnoses Complex tear of medial meniscus, current injury, left knee, subsequent encounter (05/04/20) Sprain of anterior cruciate ligament of left knee, subsequent encounter (05/04/20) Visit Care Team Role Provider Type Geraldine Dubois PA-C Family Provider Non-Staff Primary Care Provider Specialty: Medical Address: [address], [place], [address] Email: Raza Decker Attending Provider Non-Staff Referring Provider Specialty: Medical Address: [address], [place], [address] Email: Plan Of Care PT-OP-T Assessment and Plan Start: 05/01/20 07:21 Freq: Status: Active Protocol: Document 05/04/20 07:26 MB (Rec: 05/04/20 14:15 MB [id number]) Physical Therapy Assessment Rehab Potential Rehabilitation Potential Good Evaluation Complexity Number of Personal Factors/Comorbidities 1-2 Number of Body Systems Impaired 1-2 Clinical Presentation at Evaluation Stable Impairments Impairments Balance,Edema,Gait,Pain, Posture,ROM,Soft Tissue Mobility,Strength Other Concerns Fall Risk No Goals 6 Steel Finisher Goal (LTG) Pt will perform SLS left leg at least 30 sec to improve balance by 07/04/2020. LTG Duration 8 weeks 5 Fdc Goal (LTG) Pt will perform 13 reps heel raises left leg to improve strength and balance by 2019. LTG Duration 8 weeks 4 Fdc Goal (LTG) Pt will present with B hip abduction, right knee flexion and extension strength to 5/5 to improve functional mobility and gait by 07/04/2020. LTG Duration 8 weeks 3 Fdc Goal (LTG) Pt will perform progressive HEP with I including ROM, strengthening, flexibility, gait and balance exercises to improve strength by 07/04/2020 . 2 Steel Finisher Goal (LTG) Pt will present with improved left knee AROM to at least 0- 126 deg to improve sit to stands by 07/04/2020. 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 LTG Duration 8 weeks Assessment Summary Assessment Pt is a 44 y/o male presenting with history of three knee injuries and is s/p left knee arthroscopic surgery last month. Pt presents with left knee pain, fear of pain and instability, postural changes, weakness, poor gait and balance. He will benefit from PT to improve flexibility, strength, balance and gait. PT ed pt on benefits of icing, compression, passive knee extension and ROM exercises today. Physical Therapy Plan Frequency and Duration Frequency of Treatment 2x/Week Duration of Treatment 8 weeks Plan of Care Start Date 05/04/20 Plan of Care End Date 07/06/20 Therapeutic Interventions Therapeutic Interventions Aquatic Therapy,Balance Training,Gait Training,Home Exercise Program,Manual Therapy,Neuromuscular Re- education,Patient/Caregiver Education,Self-Care/Home Management,Soft Tissue Mobilization,Taping, Therapeutic Exercises Modalities Cold Pack/Ice Massage,Electric Stimulation,Hot Packs, Ultrasound Next Visit Focus/Plan Next Note Type Treatment Note Next Visit Plan Review and progress exercises, flexibility Plan of Care Dates Plan of Care Start Date 05/04/20 Plan of Care End Date 07/06/20 Electronically Signed by: Mayra Palomino, PT 05/04/20 1127 Please Sign and Return: I have reviewed this Plan of Care and certify that the skilled therapy services above are required to meet the patient?s needs. Physician Signature Date Printed Name and Credentials Clinical Instructor Signature Printed Name and Credentials
--- NOTE | 2020-05-06 08:16 | PT.OTN ---
Current Diagnoses Complex tear of medial meniscus, current injury, left knee, subsequent encounter (05/06/20) Sprain of anterior cruciate ligament of left knee, subsequent encounter (05/06/20) Physical Therapy Treatment Note PT-OP-A Visit Information Start: 05/01/20 07:21 Freq: Status: Active Protocol: Document 05/06/20 07:27 MB (Rec: 05/06/20 08:12 MB [id number]) Out-Patient Physical Therapy Visit Information Visit Information Visit Type Treatment Note Visit Note [employer], units Visit Start Time 07:30 Visit Stop Time 08:15 Total Visit Minutes 45 PT-OP-B Current Condition Start: 05/01/20 07:21 Freq: Status: Active Protocol: Document 05/04/20 07:26 MB (Rec: 05/04/20 08:07 MB [id number]) Current Condition History of Current Condition Onset Date 1 year Current Complaints Left knee pain History of Current Condition History of left ACL injury and repair 15 years ago. Last summer, pt fell 20 feet on [facility] and broke his distal femur, proximal tib fib , tore his ACL and meniscus. He was supposed to have surgery and it was cancelled d /t COVID. He re-injured it in March getting up from the floor . Pt has surgey on March 16. It was exploratory surgery and he had a bad medial meniscus tear and repair. He was on crutches 6 weeks. He went WBAT 6 days ago. He has not used crutches in a week. He was told not to pivot or turn on the left foot. 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 He has a brace. The swelling and internal pain has reduced. He has been icing. Pt rates pain up to 5/ 10 with hyperextension and is in the anterior and medial left knee. He had left ankle injury in the last year. Treatment Goals Patient/Caregiver Goals To get back to work PT-OP-C Subjective Start: 05/01/20 07:21 Freq: Status: Active Protocol: Document 05/06/20 07:27 MB (Rec: 05/06/20 08:12 MB [id number]) OP-PT Subjective Patient Comments Patient Comments I'm getting better everyday. Pt states that he is doing PT exercises some, brings in his custom knee brace and is wearing compression hose. He had cut off the bottom and top . PT-OP-D Balance Start: 05/01/20 07:21 Freq: Status: Active Protocol: Document 05/04/20 07:26 MB (Rec: 05/04/20 14:15 MB [id number]) OP-PT Balance Assessment Sitting Balance Static Sitting Balance Ability Normal Dynamic Sitting Balance Ability Normal Standing Balance Static Standing Balance Ability Fair Dynamic Standing Balance Ability Fair Balance Tests Romberg Romberg Normal, EC normal Single Limb Standing Single Limb- Right 30 sec Single Limb- Left Unable Wright Fall Scale Copyright Permission PT-OP-G Mobility & Gait Start: 05/01/20 07:21 Freq: Status: Active Protocol: Document 05/04/20 07:26 MB (Rec: 05/04/20 14:15 MB [id number]) OP Gait Assessment Gait Gait Assistance Required: Independent Distance (Feet) 75 Assistive Devices Assistive Device None Gait Deviations General Gait Pattern Antalgic,Decreased Stride Length,Decreased Feet Clearance Factors Limiting Gait Function Factors Limiting Gait Function Limited Range of Motion,Pain, Poor Balance Comments Gait Comments Favors the left leg and presents with poor step-length and foot clearance, slow antalgic gait, decreased heel strike and left knee extension PT-OP-J Posture/Palpation/Skin Start: 05/01/20 07:21 Freq: Status: Active Protocol: Document 05/04/20 07:26 MB (Rec: 05/04/20 14:15 MB [id number]) Posture Evaluation Comments Posture Comments Standing: forward head, rounded shoulders, pronounced left patella and left quad and calf atrophy, decreased left knee extension in standing, pt with increased WB to the right foot, B foot supination with decreased Mundo angle, right iliac crest higher than the left and right thoracic convexity spine. Skin Assessment Other Assessments Skin Assessment Comments Scars around the left knee, mild edema with patellar changes PT-OP-K Range of Motion Start: 05/01/20 07:21 Freq: Status: Active Protocol: Document 05/04/20 07:26 MB (Rec: 05/04/20 14:15 MB [id number]) Knee Goniometric Range of Motion Knee Left Knee ROM WFL No Patient Position Supine Flexion Active (degrees) 115 Extension Active (degrees) 4 Right Knee ROM WFL Yes Patient Position Supine Flexion Active (degrees) 128 Extension Active (degrees) 0 Knee ROM Limitations Comments Left knee 4-115 deg AROM in supine PT-OP-M Strength Start: 05/01/20 07:21 Freq: Status: Active Protocol: Document 05/04/20 07:26 MB (Rec: 05/04/20 14:15 MB [id number]) Hip Strength Hip Manual Muscle Testing Left Flexion (L2) 5 Normal Abduction 3 Fair Right Flexion (L2) 5 Normal Abduction 3+ Fair+ Knee Strength Knee Manual Muscle Testing Left Comments Deferred d/t pt reports fear of pain Right Flexion (S2) 5 Normal Extension (L3) 5 Normal Ankle/Foot Strength Ankle and Foot Manual Muscle Testing Left Dorsiflexion (L4) 5 Normal Comments All other directions deferred d/t pt report fear of pain Right Dorsiflexion (L4) 5 Normal Inversion 4 Good Eversion (S1) 4 Good Comments PF with heel raises with hands on wall in standing 13 reps and then pt fatigues Toe Strength Toe Manual Muscle Testing Left Great Toe Extension 4 Good Right Great Toe Extension 5 Normal PT-OP-Q Treatments Start: 05/01/20 07:21 Freq: Status: Active Protocol: Document 05/06/20 07:27 MB (Rec: 05/06/20 08:12 MB [id number]) Cardio Equipment Bicycle (Upright) Duration (Minutes) 10 Resistance 9 Seat Position 6 Therapeutic Exercises Supine Exercises HS Comments Left knee to improve flexion, HS with heel down and toes up Rashaun stretch with abdominal drawing in Side bilateral Comments B today with 45 sec, lift left leg with right stretch, also other side Hamstring, calf, adductor and abductor stretch Side bilateral Reps/Minutes 30 sec each, AP with hamstring stretch Comments Used martial belt and performed B today Sitting Exercises Rolling pin STM quads Comments Performed left quads today Gait Training Gait Activity With SPC left hand Comments Cues for heel strike and push off with SPC in left hand; pt presents with toe gait without AD and antalgic pattern. 75' x1, 50'x1, 15'x5 Manual Therapy Treatment Taping Left knee Type of Tape Kinesio Tape Comments Black KT for support: c strip under left patella and B I strips medial and lateral knee PT-OP-T Assessment and Plan Start: 05/01/20 07:21 Freq: Status: Active Protocol: Document 05/06/20 07:27 MB (Rec: 05/06/20 08:12 MB [id number]) Physical Therapy Assessment Rehab Potential Rehabilitation Potential Good Evaluation Complexity Number of Personal Factors/Comorbidities 1-2 Number of Body Systems Impaired 1-2 Clinical Presentation at Evaluation Stable Impairments Impairments Balance,Edema,Gait,Pain, Posture,ROM,Soft Tissue Mobility,Strength Other Concerns Fall Risk No Goals 6 Nursing Home Goal (LTG) Pt will perform SLS left leg at least 30 sec to improve balance by 07/04/2020. LTG Duration 8 weeks 5 Nursing Home Goal (LTG) Pt will perform 13 reps heel raises left leg to improve strength and balance by 2019. LTG Duration 8 weeks 4 Nursing Home Goal (LTG) Pt will present with B hip abduction, right knee flexion and extension strength to 5/5 to improve functional mobility and gait by 07/04/2020. LTG Duration 8 weeks 3 Document Control Clerk Goal (LTG) Pt will perform progressive HEP with I including ROM, strengthening, flexibility, gait and balance exercises to improve strength by 07/04/2020 . 2 Document Control Clerk Goal (LTG) Pt will present with improved left knee AROM to at least 0- 126 deg to improve sit to stands by 07/04/2020. 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 LTG Duration 8 weeks Assessment Summary Assessment Progressed flexibility stretches today. Con't progression and manual work including quad work and Counterstrain. Physical Therapy Plan Frequency and Duration Frequency of Treatment 2x/Week Duration of Treatment 8 weeks Plan of Care Start Date 05/04/20 Plan of Care End Date 07/06/20 Therapeutic Interventions Therapeutic Interventions Aquatic Therapy,Balance Training,Gait Training,Home Exercise Program,Manual Therapy,Neuromuscular Re- education,Patient/Caregiver Education,Self-Care/Home Management,Soft Tissue Mobilization,Taping, Therapeutic Exercises Modalities Cold Pack/Ice Massage,Electric Stimulation,Hot Packs, Ultrasound Next Visit Focus/Plan Next Note Type Treatment Note Next Visit Plan Review and progress exercises, flexibility and strength
--- NOTE | 2020-05-11 13:01 | PT.OTN ---
Current Diagnoses Complex tear of medial meniscus, current injury, left knee, subsequent encounter (05/11/20) Sprain of anterior cruciate ligament of left knee, subsequent encounter (05/11/20) Physical Therapy Treatment Note PT-OP-A Visit Information Start: 05/01/20 07:21 Freq: Status: Active Protocol: Document 05/11/20 12:26 MB (Rec: 05/11/20 13:01 MB [id number]) Out-Patient Physical Therapy Visit Information Visit Information Visit Type Treatment Note Visit Note [employer], units Pt arrives late to treatment Visit Start Time 12:26 Visit Stop Time 13:00 Total Visit Minutes 34 PT-OP-B Current Condition Start: 05/01/20 07:21 Freq: Status: Active Protocol: Document 05/04/20 07:26 MB (Rec: 05/04/20 08:07 MB [id number]) Current Condition History of Current Condition Onset Date 1 year Current Complaints Left knee pain History of Current Condition History of left ACL injury and repair 15 years ago. Last summer, pt fell [address] feet on [facility] and broke his distal femur, proximal tib fib , tore his ACL and meniscus. He was supposed to have surgery and it was cancelled d /t COVID. He re-injured it in March getting up from the floor . Pt has surgey on March 16. It was exploratory surgery and he had a bad medial meniscus tear and repair. He was on crutches 6 weeks. He went WBAT 6 days ago. He has not used crutches in a week. He was told not to pivot or turn on the left foot. 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 He has a brace. The swelling and internal pain has reduced. He has been icing. Pt rates pain up to 5/ 10 with hyperextension and is in the anterior and medial left knee. He had left ankle injury in the last year. Treatment Goals Patient/Caregiver Goals To get back to work PT-OP-C Subjective Start: 05/01/20 07:21 Freq: Status: Active Protocol: Document 05/11/20 12:26 MB (Rec: 05/11/20 13:01 MB [id number]) OP-PT Subjective Patient Comments Patient Comments Pt states that he overdid it while using leaf blower with pack and thinks that he pulled his left calf. He is doing pretty good. PT-OP-D Balance Start: 05/01/20 07:21 Freq: Status: Active Protocol: Document 05/04/20 07:26 MB (Rec: 05/04/20 14:15 MB [id number]) OP-PT Balance Assessment Sitting Balance Static Sitting Balance Ability Normal Dynamic Sitting Balance Ability Normal Standing Balance Static Standing Balance Ability Fair Dynamic Standing Balance Ability Fair Balance Tests Romberg Romberg Normal, EC normal Single Limb Standing Single Limb- Right 30 sec Single Limb- Left Unable Wright Fall Scale Copyright Permission PT-OP-G Mobility & Gait Start: 05/01/20 07:21 Freq: Status: Active Protocol: Document 05/04/20 07:26 MB (Rec: 05/04/20 14:15 MB [id number]) OP Gait Assessment Gait Gait Assistance Required: Independent Distance (Feet) 75 Assistive Devices Assistive Device None Gait Deviations General Gait Pattern Antalgic,Decreased Stride Length,Decreased Feet Clearance Factors Limiting Gait Function Factors Limiting Gait Function Limited Range of Motion,Pain, Poor Balance Comments Gait Comments Favors the left leg and presents with poor step-length and foot clearance, slow antalgic gait, decreased heel strike and left knee extension PT-OP-J Posture/Palpation/Skin Start: 05/01/20 07:21 Freq: Status: Active Protocol: Document 05/04/20 07:26 MB (Rec: 05/04/20 14:15 MB [id number]) Posture Evaluation Comments Posture Comments Standing: forward head, rounded shoulders, pronounced left patella and left quad and calf atrophy, decreased left knee extension in standing, pt with increased WB to the right foot, B foot supination with decreased Mundo angle, right iliac crest higher than the left and right thoracic convexity spine. Skin Assessment Other Assessments Skin Assessment Comments Scars around the left knee, mild edema with patellar changes PT-OP-K Range of Motion Start: 05/01/20 07:21 Freq: Status: Active Protocol: Document 05/04/20 07:26 MB (Rec: 05/04/20 14:15 MB [id number]) Knee Goniometric Range of Motion Knee Left Knee ROM WFL No Patient Position Supine Flexion Active (degrees) 115 Extension Active (degrees) 4 Right Knee ROM WFL Yes Patient Position Supine Flexion Active (degrees) 128 Extension Active (degrees) 0 Knee ROM Limitations Comments Left knee 4-115 deg AROM in supine PT-OP-M Strength Start: 05/01/20 07:21 Freq: Status: Active Protocol: Document 05/04/20 07:26 MB (Rec: 05/04/20 14:15 MB [id number]) Hip Strength Hip Manual Muscle Testing Left Flexion (L2) 5 Normal Abduction 3 Fair Right Flexion (L2) 5 Normal Abduction 3+ Fair+ Knee Strength Knee Manual Muscle Testing Left Comments Deferred d/t pt reports fear of pain Right Flexion (S2) 5 Normal Extension (L3) 5 Normal Ankle/Foot Strength Ankle and Foot Manual Muscle Testing Left Dorsiflexion (L4) 5 Normal Comments All other directions deferred d/t pt report fear of pain Right Dorsiflexion (L4) 5 Normal Inversion 4 Good Eversion (S1) 4 Good Comments PF with heel raises with hands on wall in standing 13 reps and then pt fatigues Toe Strength Toe Manual Muscle Testing Left Great Toe Extension 4 Good Right Great Toe Extension 5 Normal PT-OP-Q Treatments Start: 05/01/20 07:21 Freq: Status: Active Protocol: Document 05/11/20 12:26 MB (Rec: 05/11/20 13:01 MB [id number]) Cardio Equipment Bicycle (Upright) Duration (Minutes) 10 Resistance 11 Seat Position 7 Therapeutic Exercises Supine Exercises Hip rotator stretch Side bilateral Comments 45 sec Rashaun stretch with abdominal drawing in Side bilateral Comments Today, opposite leg up to chest Manual Therapy Treatment Other Other Manual Treatments Left quad (vastus lateralis, rectus) STM and positional release and patellar lift PT-OP-T Assessment and Plan Start: 05/01/20 07:21 Freq: Status: Active Protocol: Document 05/11/20 12:26 MB (Rec: 05/11/20 13:01 MB [id number]) Physical Therapy Assessment Rehab Potential Rehabilitation Potential Good Evaluation Complexity Number of Personal Factors/Comorbidities 1-2 Number of Body Systems Impaired 1-2 Clinical Presentation at Evaluation Stable Impairments Impairments Balance,Edema,Gait,Pain, Posture,ROM,Soft Tissue Mobility,Strength Other Concerns Fall Risk No Goals 6 Retirement Goal (LTG) Pt will perform SLS left leg at least 30 sec to improve balance by 07/04/2020. LTG Duration 8 weeks 5 Retirement Goal (LTG) Pt will perform 13 reps heel raises left leg to improve strength and balance by 2019. LTG Duration 8 weeks 4 Sales Floor Team Member Goal (LTG) Pt will present with B hip abduction, right knee flexion and extension strength to 5/5 to improve functional mobility and gait by 07/04/2020. LTG Duration 8 weeks 3 Retirement Goal (LTG) Pt will perform progressive HEP with I including ROM, strengthening, flexibility, gait and balance exercises to improve strength by 07/04/2020 . 2 Retirement Goal (LTG) Pt will present with improved left knee AROM to at least 0- 126 deg to improve sit to stands by 07/04/2020. 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 LTG Duration 8 weeks Assessment Summary Assessment Progressed hip rotator stretching this date. Con't to progress strengthening including progressive trauma release strengthening, standing hip abductor and extensor strengthening, core strengthening and heel raises. Physical Therapy Plan Frequency and Duration Frequency of Treatment 2x/Week Duration of Treatment 8 weeks Plan of Care Start Date 05/04/20 Plan of Care End Date 07/06/20 Therapeutic Interventions Therapeutic Interventions Aquatic Therapy,Balance Training,Gait Training,Home Exercise Program,Manual Therapy,Neuromuscular Re- education,Patient/Caregiver Education,Self-Care/Home Management,Soft Tissue Mobilization,Taping, Therapeutic Exercises Modalities Cold Pack/Ice Massage,Electric Stimulation,Hot Packs, Ultrasound Next Visit Focus/Plan Next Note Type Treatment Note Next Visit Plan Trauma Release exercises for strengthening, hip abductioin and extension strengthening, core engagement with heel raises, other balance exercises.
--- NOTE | 2020-05-13 08:11 | PT.OTN ---
Current Diagnoses Complex tear of medial meniscus, current injury, left knee, subsequent encounter (05/13/20) Sprain of anterior cruciate ligament of left knee, subsequent encounter (05/13/20) Physical Therapy Treatment Note PT-OP-A Visit Information Start: 05/01/20 07:21 Freq: Status: Active Protocol: Document 05/13/20 07:31 MB (Rec: 05/13/20 08:08 MB [id number]) Out-Patient Physical Therapy Visit Information Visit Information Visit Type Treatment Note Visit Note [employer], units Visit Start Time 07:31 Visit Stop Time 08:11 Total Visit Minutes 40 PT-OP-B Current Condition Start: 05/01/20 07:21 Freq: Status: Active Protocol: Document 05/04/20 07:26 MB (Rec: 05/04/20 08:07 MB [id number]) Current Condition History of Current Condition Onset Date 1 year Current Complaints Left knee pain History of Current Condition History of left ACL injury and repair 15 years ago. Last summer, pt fell 20 feet on [facility] and broke his distal femur, proximal tib fib , tore his ACL and meniscus. He was supposed to have surgery and it was cancelled d /t COVID. He re-injured it in March getting up from the floor . Pt has surgey on March 16. It was exploratory surgery and he had a bad medial meniscus tear and repair. He was on crutches 6 weeks. He went WBAT 6 days ago. He has not used crutches in a week. He was told not to pivot or turn on the left foot. 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 He has a brace. The swelling and internal pain has reduced. He has been icing. Pt rates pain up to 5/ 10 with hyperextension and is in the anterior and medial left knee. He had left ankle injury in the last year. Treatment Goals Patient/Caregiver Goals To get back to work PT-OP-C Subjective Start: 05/01/20 07:21 Freq: Status: Active Protocol: Document 05/13/20 07:31 MB (Rec: 05/13/20 08:08 MB [id number]) OP-PT Subjective Patient Comments Patient Comments Pt is doing okay. He has had two rough nights of sleeping. He does not arrive with cane today. He has been doing more mowing with work. He feels like he is getting better everyday. PT-OP-D Balance Start: 05/01/20 07:21 Freq: Status: Active Protocol: Document 05/04/20 07:26 MB (Rec: 05/04/20 14:15 MB [id number]) OP-PT Balance Assessment Sitting Balance Static Sitting Balance Ability Normal Dynamic Sitting Balance Ability Normal Standing Balance Static Standing Balance Ability Fair Dynamic Standing Balance Ability Fair Balance Tests Romberg Romberg Normal, EC normal Single Limb Standing Single Limb- Right 30 sec Single Limb- Left Unable Wright Fall Scale Copyright Permission PT-OP-G Mobility & Gait Start: 05/01/20 07:21 Freq: Status: Active Protocol: Document 05/04/20 07:26 MB (Rec: 05/04/20 14:15 MB [id number]) OP Gait Assessment Gait Gait Assistance Required: Independent Distance (Feet) 75 Assistive Devices Assistive Device None Gait Deviations General Gait Pattern Antalgic,Decreased Stride Length,Decreased Feet Clearance Factors Limiting Gait Function Factors Limiting Gait Function Limited Range of Motion,Pain, Poor Balance Comments Gait Comments Favors the left leg and presents with poor step-length and foot clearance, slow antalgic gait, decreased heel strike and left knee extension PT-OP-J Posture/Palpation/Skin Start: 05/01/20 07:21 Freq: Status: Active Protocol: Document 05/04/20 07:26 MB (Rec: 05/04/20 14:15 MB [id number]) Posture Evaluation Comments Posture Comments Standing: forward head, rounded shoulders, pronounced left patella and left quad and calf atrophy, decreased left knee extension in standing, pt with increased WB to the right foot, B foot supination with decreased Mundo angle, right iliac crest higher than the left and right thoracic convexity spine. Skin Assessment Other Assessments Skin Assessment Comments Scars around the left knee, mild edema with patellar changes PT-OP-K Range of Motion Start: 05/01/20 07:21 Freq: Status: Active Protocol: Document 05/04/20 07:26 MB (Rec: 05/04/20 14:15 MB [id number]) Knee Goniometric Range of Motion Knee Left Knee ROM WFL No Patient Position Supine Flexion Active (degrees) 115 Extension Active (degrees) 4 Right Knee ROM WFL Yes Patient Position Supine Flexion Active (degrees) 128 Extension Active (degrees) 0 Knee ROM Limitations Comments Left knee 4-115 deg AROM in supine PT-OP-M Strength Start: 05/01/20 07:21 Freq: Status: Active Protocol: Document 05/04/20 07:26 MB (Rec: 05/04/20 14:15 MB [id number]) Hip Strength Hip Manual Muscle Testing Left Flexion (L2) 5 Normal Abduction 3 Fair Right Flexion (L2) 5 Normal Abduction 3+ Fair+ Knee Strength Knee Manual Muscle Testing Left Comments Deferred d/t pt reports fear of pain Right Flexion (S2) 5 Normal Extension (L3) 5 Normal Ankle/Foot Strength Ankle and Foot Manual Muscle Testing Left Dorsiflexion (L4) 5 Normal Comments All other directions deferred d/t pt report fear of pain Right Dorsiflexion (L4) 5 Normal Inversion 4 Good Eversion (S1) 4 Good Comments PF with heel raises with hands on wall in standing 13 reps and then pt fatigues Toe Strength Toe Manual Muscle Testing Left Great Toe Extension 4 Good Right Great Toe Extension 5 Normal PT-OP-Q Treatments Start: 05/01/20 07:21 Freq: Status: Active Protocol: Document 05/13/20 07:31 MB (Rec: 05/13/20 08:08 MB [id number]) Cardio Equipment Bicycle (Upright) Duration (Minutes) 12 Resistance 11 Seat Position 7 Therapeutic Exercises Supine Exercises Hip rotator stretch Side bilateral Comments 45 sec Rashaun stretch with abdominal drawing in Side bilateral Comments Today, opposite leg up to chest Standing Exercises Wall squat Comments 10 reps slowly, core engaged, band around knees Hip extension with band Standing Exercise Name Backwards walking Reps/Minutes 10 steps both directions x2 Comments Level 1 band, core tight Hip abduction with band Standing Exercise Name Crab walking Reps/Minutes 5 reps right and left x2 Comments Level 1 band, core tight Manual Therapy Treatment Taping Left knee Type of Tape Kinesio Tape Comments Black KT for support: c strip under left patella and B I strips medial and lateral knee PT-OP-T Assessment and Plan Start: 05/01/20 07:21 Freq: Status: Active Protocol: Document 05/13/20 07:31 MB (Rec: 05/13/20 08:08 MB [id number]) Physical Therapy Assessment Rehab Potential Rehabilitation Potential Good Evaluation Complexity Number of Personal Factors/Comorbidities 1-2 Number of Body Systems Impaired 1-2 Clinical Presentation at Evaluation Stable Impairments Impairments Balance,Edema,Gait,Pain, Posture,ROM,Soft Tissue Mobility,Strength Other Concerns Fall Risk No Goals 6 Slide Forming Machine Tender Goal (LTG) Pt will perform SLS left leg at least 30 sec to improve balance by 07/04/2020. LTG Duration 8 weeks 5 Slide Forming Machine Tender Goal (LTG) Pt will perform 13 reps heel raises left leg to improve strength and balance by 2019. LTG Duration 8 weeks 4 Slide Forming Machine Tender Goal (LTG) Pt will present with B hip abduction, right knee flexion and extension strength to 5/5 to improve functional mobility and gait by 07/04/2020. LTG Duration 8 weeks 3 Slide Forming Machine Tender Goal (LTG) Pt will perform progressive HEP with I including ROM, strengthening, flexibility, gait and balance exercises to improve strength by 07/04/2020 . 2 Slide Forming Machine Tender Goal (LTG) Pt will present with improved left knee AROM to at least 0- 126 deg to improve sit to stands by 07/04/2020. 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 LTG Duration 8 weeks Assessment Summary Assessment Progressed balance and standing strengthening exercises today. Con't to progress strengthening including progressive trauma release strengthening, core strengthening and heel raises. Physical Therapy Plan Frequency and Duration Frequency of Treatment 2x/Week Duration of Treatment 8 weeks Plan of Care Start Date 05/04/20 Plan of Care End Date 07/06/20 Therapeutic Interventions Therapeutic Interventions Aquatic Therapy,Balance Training,Gait Training,Home Exercise Program,Manual Therapy,Neuromuscular Re- education,Patient/Caregiver Education,Self-Care/Home Management,Soft Tissue Mobilization,Taping, Therapeutic Exercises Modalities Cold Pack/Ice Massage,Electric Stimulation,Hot Packs, Ultrasound Next Visit Focus/Plan Next Note Type Treatment Note Next Visit Plan Trauma Release exercises for strengthening, hip abductioin and extension strengthening, core engagement with heel raises, other balance exercises.
--- NOTE | 2020-06-01 09:00 | PT.OTN ---
Current Diagnoses Complex tear of medial meniscus, current injury, left knee, subsequent encounter (06/01/20) Sprain of anterior cruciate ligament of left knee, subsequent encounter (06/01/20) Physical Therapy Treatment Note PT-OP-A Visit Information Start: 05/01/20 07:21 Freq: Status: Active Protocol: Document 06/01/20 08:18 SP (Rec: 06/01/20 09:04 SP [id number]) Out-Patient Physical Therapy Visit Information Visit Information Visit Type Treatment Note Visit Note [employer], units Visit Start Time 08:18 Visit Stop Time 09:00 Total Visit Minutes 42 Visit Number 5 Number of PAI GOW MANAGER Visits 1 PT-OP-B Current Condition Start: 05/01/20 07:21 Freq: Status: Active Protocol: Document 05/04/20 07:26 MB (Rec: 05/04/20 08:07 MB [id number]) Current Condition History of Current Condition Onset Date 1 year Current Complaints Left knee pain History of Current Condition History of left ACL injury and repair 15 years ago. Last summer, pt fell 20 feet on [facility] and broke his distal femur, proximal tib fib , tore his ACL and meniscus. He was supposed to have surgery and it was cancelled d /t COVID. He re-injured it in March getting up from the floor . Pt has surgey on March 16. It was exploratory surgery and he had a bad medial meniscus tear and repair. He was on crutches 6 weeks. He went WBAT 6 days ago. He has not used crutches in a week. He was told not to pivot or turn on the left foot. 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 He has a brace. The swelling and internal pain has reduced. He has been icing. Pt rates pain up to 5/ 10 with hyperextension and is in the anterior and medial left knee. He had left ankle injury in the last year. Treatment Goals Patient/Caregiver Goals To get back to work PT-OP-C Subjective Start: 05/01/20 07:21 Freq: Status: Active Protocol: Document 06/01/20 08:18 SP (Rec: 06/01/20 09:04 SP [id number]) OP-PT Subjective Patient Comments Patient Comments Pt reports L knee has a growth that irritates wearing his brace that didnt' have before surgery. Notices good gains since PT, able to do get up/ down ladder and self scafolding to do some pruning, possibly ready for DC, back to work. Had an appt with orthopedic, approx Jun 06 to look further at knee and assess brace using. PT-OP-D Balance Start: 05/01/20 07:21 Freq: Status: Active Protocol: Document 05/04/20 07:26 MB (Rec: 05/04/20 14:15 MB [id number]) OP-PT Balance Assessment Sitting Balance Static Sitting Balance Ability Normal Dynamic Sitting Balance Ability Normal Standing Balance Static Standing Balance Ability Fair Dynamic Standing Balance Ability Fair Balance Tests Romberg Romberg Normal, EC normal Single Limb Standing Single Limb- Right 30 sec Single Limb- Left Unable Wright Fall Scale Copyright Permission PT-OP-G Mobility & Gait Start: 05/01/20 07:21 Freq: Status: Active Protocol: Document 05/04/20 07:26 MB (Rec: 05/04/20 14:15 MB [id number]) OP Gait Assessment Gait Gait Assistance Required: Independent Distance (Feet) 75 Assistive Devices Assistive Device None Gait Deviations General Gait Pattern Antalgic,Decreased Stride Length,Decreased Feet Clearance Factors Limiting Gait Function Factors Limiting Gait Function Limited Range of Motion,Pain, Poor Balance Comments Gait Comments Favors the left leg and presents with poor step-length and foot clearance, slow antalgic gait, decreased heel strike and left knee extension PT-OP-J Posture/Palpation/Skin Start: 05/01/20 07:21 Freq: Status: Active Protocol: Document 05/04/20 07:26 MB (Rec: 05/04/20 14:15 MB [id number]) Posture Evaluation Comments Posture Comments Standing: forward head, rounded shoulders, pronounced left patella and left quad and calf atrophy, decreased left knee extension in standing, pt with increased WB to the right foot, B foot supination with decreased Mundo angle, right iliac crest higher than the left and right thoracic convexity spine. Skin Assessment Other Assessments Skin Assessment Comments Scars around the left knee, mild edema with patellar changes PT-OP-K Range of Motion Start: 05/01/20 07:21 Freq: Status: Active Protocol: Document 05/04/20 07:26 MB (Rec: 05/04/20 14:15 MB [id number]) Knee Goniometric Range of Motion Knee Left Knee ROM WFL No Patient Position Supine Flexion Active (degrees) 115 Extension Active (degrees) 4 Right Knee ROM WFL Yes Patient Position Supine Flexion Active (degrees) 128 Extension Active (degrees) 0 Knee ROM Limitations Comments Left knee 4-115 deg AROM in supine PT-OP-M Strength Start: 05/01/20 07:21 Freq: Status: Active Protocol: Document 05/04/20 07:26 MB (Rec: 05/04/20 14:15 MB [id number]) Hip Strength Hip Manual Muscle Testing Left Flexion (L2) 5 Normal Abduction 3 Fair Right Flexion (L2) 5 Normal Abduction 3+ Fair+ Knee Strength Knee Manual Muscle Testing Left Comments Deferred d/t pt reports fear of pain Right Flexion (S2) 5 Normal Extension (L3) 5 Normal Ankle/Foot Strength Ankle and Foot Manual Muscle Testing Left Dorsiflexion (L4) 5 Normal Comments All other directions deferred d/t pt report fear of pain Right Dorsiflexion (L4) 5 Normal Inversion 4 Good Eversion (S1) 4 Good Comments PF with heel raises with hands on wall in standing 13 reps and then pt fatigues Toe Strength Toe Manual Muscle Testing Left Great Toe Extension 4 Good Right Great Toe Extension 5 Normal PT-OP-Q Treatments Start: 05/01/20 07:21 Freq: Status: Active Protocol: Document 06/01/20 08:18 SP (Rec: 06/01/20 09:04 SP [id number]) Cardio Equipment Bicycle (Upright) Duration (Minutes) 8 Resistance 11 Seat Position 7 Therapeutic Exercises Sitting Exercises HS stretch Sitting Exercise Name sit and stand hip hinge Side bilateral Reps/Minutes 30x3 Standing Exercises glut/ piriformis stretch Side bilateral Reps/Minutes 30 gastroc/soleus stretch Side bilateral Reps/Minutes 30 x2 each eccentric step downs Standing Exercise Name retro, lateral, forward Side bilateral Resistance AROM Equipment Used 6 step, rail Reps/Minutes x10 each direction Comments cued knee with and behind toes air eccentric squat tap chair Resistance AROM, 2 x 7# DB Reps/Minutes x15, wt x3 (holding off for know) Comments cued hip hinge, knee alignment with and behind toes Wall squat Comments 10 reps slowly, core engaged, band around knees PT-OP-T Assessment and Plan Start: 05/01/20 07:21 Freq: Status: Active Protocol: Document 06/01/20 08:18 SP (Rec: 06/01/20 09:04 SP [id number]) Physical Therapy Assessment Goals 6 Correction Goal (LTG) Pt will perform SLS left leg at least 30 sec to improve balance by 07/04/2020. LTG Duration 8 weeks 5 Correction Goal (LTG) Pt will perform 13 reps heel raises left leg to improve strength and balance by 2019. LTG Duration 8 weeks 4 Income Tax Consultant Goal (LTG) Pt will present with B hip abduction, right knee flexion and extension strength to 5/5 to improve functional mobility and gait by 07/04/2020. LTG Duration 8 weeks 3 Income Tax Consultant Goal (LTG) Pt will perform progressive HEP with I including ROM, strengthening, flexibility, gait and balance exercises to improve strength by 07/04/2020 . 2 Income Tax Consultant Goal (LTG) Pt will present with improved left knee AROM to at least 0- 126 deg to improve sit to stands by 07/04/2020. 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 LTG Duration 8 weeks Assessment Summary Assessment Pt responded well to added strengthening and stretching with cuing for proper knee alignment and hip hinge to decreased knee discomfort recuitment with good result feedback. Pt reported little nodule Medial L knee is being followed and not irritation unless turns knee during ex today. Pt reports think ready to DC next tx and progress further on own. Added new ex to support that at home. Physical Therapy Plan Frequency and Duration Frequency of Treatment 2x/Week Duration of Treatment 8 weeks Plan of Care Start Date 05/04/20 Plan of Care End Date 07/06/20 Therapeutic Interventions Therapeutic Interventions Aquatic Therapy,Balance Training,Gait Training,Home Exercise Program,Manual Therapy,Neuromuscular Re- education,Patient/Caregiver Education,Self-Care/Home Management,Soft Tissue Mobilization,Taping, Therapeutic Exercises Modalities Cold Pack/Ice Massage,Electric Stimulation,Hot Packs, Ultrasound Next Visit Focus/Plan Next Note Type Treatment Note Next Visit Plan Assess response to added HEP hip/ knee strengthening and stretching last tx. [place] a good work out end of tx with no adverse affects. Possible DC next tx. Continue per PT POC: Trauma Release exercises for strengthening, hip abductioin and extension strengthening, core engagement with heel raises, other balance exercises.
--- NOTE | 2020-06-04 09:47 | PT.OTN ---
Current Diagnoses Complex tear of medial meniscus, current injury, left knee, subsequent encounter (06/04/20) Sprain of anterior cruciate ligament of left knee, subsequent encounter (06/04/20) Physical Therapy Treatment Note PT-OP-A Visit Information Start: 05/01/20 07:21 Freq: Status: Active Protocol: Document 06/04/20 08:45 MB (Rec: 06/04/20 09:47 MB [id number]) Out-Patient Physical Therapy Visit Information Visit Information Visit Type Treatment Note Visit Note [employer], units Visit Start Time 09:00 Visit Stop Time 09:45 Total Visit Minutes 45 Visit Number 6 Number of MANAGER FILE Visits 0 PT-OP-B Current Condition Start: 05/01/20 07:21 Freq: Status: Active Protocol: Document 05/04/20 07:26 MB (Rec: 05/04/20 08:07 MB [id number]) Current Condition History of Current Condition Onset Date 1 year Current Complaints Left knee pain History of Current Condition History of left ACL injury and repair 15 years ago. Last summer, pt fell 20 feet on [facility] and broke his distal femur, proximal tib fib , tore his ACL and meniscus. He was supposed to have surgery and it was cancelled d /t COVID. He re-injured it in March getting up from the floor . Pt has surgey on March 16. It was exploratory surgery and he had a bad medial meniscus tear and repair. He was on crutches 6 weeks. He went WBAT 6 days ago. He has not used crutches in a week. He was told not to pivot or turn on the left foot. 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 He has a brace. The swelling and internal pain has reduced. He has been icing. Pt rates pain up to 5/ 10 with hyperextension and is in the anterior and medial left knee. He had left ankle injury in the last year. Treatment Goals Patient/Caregiver Goals To get back to work PT-OP-C Subjective Start: 05/01/20 07:21 Freq: Status: Active Protocol: Document 06/04/20 08:45 MB (Rec: 06/04/20 09:47 MB [id number]) OP-PT Subjective Patient Comments Patient Comments Is there any way I can change my mind? My knee is giving out on me. PT-OP-D Balance Start: 05/01/20 07:21 Freq: Status: Active Protocol: Document 05/04/20 07:26 MB (Rec: 05/04/20 14:15 MB [id number]) OP-PT Balance Assessment Sitting Balance Static Sitting Balance Ability Normal Dynamic Sitting Balance Ability Normal Standing Balance Static Standing Balance Ability Fair Dynamic Standing Balance Ability Fair Balance Tests Romberg Romberg Normal, EC normal Single Limb Standing Single Limb- Right 30 sec Single Limb- Left Unable Wright Fall Scale Copyright Permission PT-OP-G Mobility & Gait Start: 05/01/20 07:21 Freq: Status: Active Protocol: Document 05/04/20 07:26 MB (Rec: 05/04/20 14:15 MB [id number]) OP Gait Assessment Gait Gait Assistance Required: Independent Distance (Feet) 75 Assistive Devices Assistive Device None Gait Deviations General Gait Pattern Antalgic,Decreased Stride Length,Decreased Feet Clearance Factors Limiting Gait Function Factors Limiting Gait Function Limited Range of Motion,Pain, Poor Balance Comments Gait Comments Favors the left leg and presents with poor step-length and foot clearance, slow antalgic gait, decreased heel strike and left knee extension PT-OP-J Posture/Palpation/Skin Start: 05/01/20 07:21 Freq: Status: Active Protocol: Document 05/04/20 07:26 MB (Rec: 05/04/20 14:15 MB [id number]) Posture Evaluation Comments Posture Comments Standing: forward head, rounded shoulders, pronounced left patella and left quad and calf atrophy, decreased left knee extension in standing, pt with increased WB to the right foot, B foot supination with decreased Mundo angle, right iliac crest higher than the left and right thoracic convexity spine. Skin Assessment Other Assessments Skin Assessment Comments Scars around the left knee, mild edema with patellar changes PT-OP-K Range of Motion Start: 05/01/20 07:21 Freq: Status: Active Protocol: Document 05/04/20 07:26 MB (Rec: 05/04/20 14:15 MB [id number]) Knee Goniometric Range of Motion Knee Left Knee ROM WFL No Patient Position Supine Flexion Active (degrees) 115 Extension Active (degrees) 4 Right Knee ROM WFL Yes Patient Position Supine Flexion Active (degrees) 128 Extension Active (degrees) 0 Knee ROM Limitations Comments Left knee 4-115 deg AROM in supine PT-OP-M Strength Start: 05/01/20 07:21 Freq: Status: Active Protocol: Document 05/04/20 07:26 MB (Rec: 05/04/20 14:15 MB [id number]) Hip Strength Hip Manual Muscle Testing Left Flexion (L2) 5 Normal Abduction 3 Fair Right Flexion (L2) 5 Normal Abduction 3+ Fair+ Knee Strength Knee Manual Muscle Testing Left Comments Deferred d/t pt reports fear of pain Right Flexion (S2) 5 Normal Extension (L3) 5 Normal Ankle/Foot Strength Ankle and Foot Manual Muscle Testing Left Dorsiflexion (L4) 5 Normal Comments All other directions deferred d/t pt report fear of pain Right Dorsiflexion (L4) 5 Normal Inversion 4 Good Eversion (S1) 4 Good Comments PF with heel raises with hands on wall in standing 13 reps and then pt fatigues Toe Strength Toe Manual Muscle Testing Left Great Toe Extension 4 Good Right Great Toe Extension 5 Normal PT-OP-Q Treatments Start: 05/01/20 07:21 Freq: Status: Active Protocol: Document 06/04/20 08:45 MB (Rec: 06/04/20 09:47 MB [id number]) Cardio Equipment Bicycle (Upright) Duration (Minutes) 11 Resistance 11 Seat Position 6 Manual Therapy Treatment Taping Left knee Type of Tape Kinesio Tape Comments Black KT for support: c strip under left patella and B I strips medial and lateral knee Other Other Manual Treatments STM left foot, posterior and anterior lower leg, left patellar mobs, loosening over medial left knee hard pea shaped area PT-OP-T Assessment and Plan Start: 05/01/20 07:21 Freq: Status: Active Protocol: Document 06/04/20 08:45 MB (Rec: 06/04/20 09:47 MB [id number]) Physical Therapy Assessment Rehab Potential Rehabilitation Potential Good Evaluation Complexity Number of Personal Factors/Comorbidities 1-2 Number of Body Systems Impaired 1-2 Clinical Presentation at Evaluation Stable Impairments Impairments Balance,Edema,Gait,Pain, Posture,ROM,Soft Tissue Mobility,Strength Other Concerns Fall Risk No Goals 6 Batting Machine Operator Goal (LTG) Pt will perform SLS left leg at least 30 sec to improve balance by 07/04/2020. LTG Duration 8 weeks 5 Batting Machine Operator Goal (LTG) Pt will perform 13 reps heel raises left leg to improve strength and balance by 2019. LTG Duration 8 weeks 4 Batting Machine Operator Goal (LTG) Pt will present with B hip abduction, right knee flexion and extension strength to 5/5 to improve functional mobility and gait by 07/04/2020. LTG Duration 8 weeks 3 Batting Machine Operator Goal (LTG) Pt will perform progressive HEP with I including ROM, strengthening, flexibility, gait and balance exercises to improve strength by 07/04/2020 . 2 Care Home Goal (LTG) Pt will present with improved left knee AROM to at least 0- 126 deg to improve sit to stands by 07/04/2020. 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 LTG Duration 8 weeks Assessment Summary Assessment Pt reports ongoing knee giving way. Manual work today to address fascial tightness and knee mobility. Pt with ongoing hard lump area medial left knee. Consider trauma release exercises in future treatments . Physical Therapy Plan Frequency and Duration Frequency of Treatment 2x/Week Duration of Treatment 8 weeks Plan of Care Start Date 05/04/20 Plan of Care End Date 07/06/20 Therapeutic Interventions Therapeutic Interventions Aquatic Therapy,Balance Training,Gait Training,Home Exercise Program,Manual Therapy,Neuromuscular Re- education,Patient/Caregiver Education,Self-Care/Home Management,Soft Tissue Mobilization,Taping, Therapeutic Exercises Modalities Cold Pack/Ice Massage,Electric Stimulation,Hot Packs, Ultrasound Next Visit Focus/Plan Next Note Type Treatment Note Next Visit Plan Trauma Release exercises for leg strengtheing and balance exercises
--- NOTE | 2020-06-11 08:40 | PT-OP ANOTE ---
Pt missed appointment. PT calls him and he is on the road. He thought that his appointment was at 0900. He took 0815 opening tomorrow.
--- NOTE | 2020-06-12 08:54 | PT.OTN ---
Current Diagnoses Complex tear of medial meniscus, current injury, left knee, subsequent encounter (06/12/20) Sprain of anterior cruciate ligament of left knee, subsequent encounter (06/12/20) Physical Therapy Treatment Note PT-OP-A Visit Information Start: 05/01/20 07:21 Freq: Status: Active Protocol: Document 06/12/20 08:16 MB (Rec: 06/12/20 08:53 MB [id number]) Out-Patient Physical Therapy Visit Information Visit Information Visit Type Treatment Note Visit Note [employer], units Visit Start Time 08:16 Visit Stop Time 08:54 Total Visit Minutes 38 Visit Number 7 PT-OP-B Current Condition Start: 05/01/20 07:21 Freq: Status: Active Protocol: Document 05/04/20 07:26 MB (Rec: 05/04/20 08:07 MB [id number]) Current Condition History of Current Condition Onset Date 1 year Current Complaints Left knee pain History of Current Condition History of left ACL injury and repair 15 years ago. Last summer, pt fell 20 feet on [facility] and broke his distal femur, proximal tib fib , tore his ACL and meniscus. He was supposed to have surgery and it was cancelled d /t COVID. He re-injured it in March getting up from the floor . Pt has surgey on March 16. It was exploratory surgery and he had a bad medial meniscus tear and repair. He was on crutches 6 weeks. He went WBAT 6 days ago. He has not used crutches in a week. He was told not to pivot or turn on the left foot. 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 He has a brace. The swelling and internal pain has reduced. He has been icing. Pt rates pain up to 5/ 10 with hyperextension and is in the anterior and medial left knee. He had left ankle injury in the last year. Treatment Goals Patient/Caregiver Goals To get back to work PT-OP-C Subjective Start: 05/01/20 07:21 Freq: Status: Active Protocol: Document 06/12/20 08:16 MB (Rec: 06/12/20 08:53 MB [id number]) OP-PT Subjective Patient Comments Patient Comments I think I'm at the point where I need to discharge. PT-OP-D Balance Start: 05/01/20 07:21 Freq: Status: Active Protocol: Document 05/04/20 07:26 MB (Rec: 05/04/20 14:15 MB [id number]) OP-PT Balance Assessment Sitting Balance Static Sitting Balance Ability Normal Dynamic Sitting Balance Ability Normal Standing Balance Static Standing Balance Ability Fair Dynamic Standing Balance Ability Fair Balance Tests Romberg Romberg Normal, EC normal Single Limb Standing Single Limb- Right 30 sec Single Limb- Left Unable Wright Fall Scale Copyright Permission PT-OP-G Mobility & Gait Start: 05/01/20 07:21 Freq: Status: Active Protocol: Document 05/04/20 07:26 MB (Rec: 05/04/20 14:15 MB [id number]) OP Gait Assessment Gait Gait Assistance Required: Independent Distance (Feet) 75 Assistive Devices Assistive Device None Gait Deviations General Gait Pattern Antalgic,Decreased Stride Length,Decreased Feet Clearance Factors Limiting Gait Function Factors Limiting Gait Function Limited Range of Motion,Pain, Poor Balance Comments Gait Comments Favors the left leg and presents with poor step-length and foot clearance, slow antalgic gait, decreased heel strike and left knee extension PT-OP-J Posture/Palpation/Skin Start: 05/01/20 07:21 Freq: Status: Active Protocol: Document 05/04/20 07:26 MB (Rec: 05/04/20 14:15 MB [id number]) Posture Evaluation Comments Posture Comments Standing: forward head, rounded shoulders, pronounced left patella and left quad and calf atrophy, decreased left knee extension in standing, pt with increased WB to the right foot, B foot supination with decreased Mundo angle, right iliac crest higher than the left and right thoracic convexity spine. Skin Assessment Other Assessments Skin Assessment Comments Scars around the left knee, mild edema with patellar changes PT-OP-K Range of Motion Start: 05/01/20 07:21 Freq: Status: Active Protocol: Document 05/04/20 07:26 MB (Rec: 05/04/20 14:15 MB [id number]) Knee Goniometric Range of Motion Knee Left Knee ROM WFL No Patient Position Supine Flexion Active (degrees) 115 Extension Active (degrees) 4 Right Knee ROM WFL Yes Patient Position Supine Flexion Active (degrees) 128 Extension Active (degrees) 0 Knee ROM Limitations Comments Left knee 4-115 deg AROM in supine PT-OP-M Strength Start: 05/01/20 07:21 Freq: Status: Active Protocol: Document 05/04/20 07:26 MB (Rec: 05/04/20 14:15 MB [id number]) Hip Strength Hip Manual Muscle Testing Left Flexion (L2) 5 Normal Abduction 3 Fair Right Flexion (L2) 5 Normal Abduction 3+ Fair+ Knee Strength Knee Manual Muscle Testing Left Comments Deferred d/t pt reports fear of pain Right Flexion (S2) 5 Normal Extension (L3) 5 Normal Ankle/Foot Strength Ankle and Foot Manual Muscle Testing Left Dorsiflexion (L4) 5 Normal Comments All other directions deferred d/t pt report fear of pain Right Dorsiflexion (L4) 5 Normal Inversion 4 Good Eversion (S1) 4 Good Comments PF with heel raises with hands on wall in standing 13 reps and then pt fatigues Toe Strength Toe Manual Muscle Testing Left Great Toe Extension 4 Good Right Great Toe Extension 5 Normal PT-OP-Q Treatments Start: 05/01/20 07:21 Freq: Status: Active Protocol: Document 06/12/20 08:16 MB (Rec: 06/12/20 08:53 MB [id number]) Cardio Equipment Bicycle (Upright) Duration (Minutes) 10 Resistance 10 Seat Position 6 Therapeutic Exercises Sitting Exercises Ankle eversion and DF with band Comments 10 reps with level 3 band Sit to stands with band around knees Comments Level 2 band around knees, 10 reps LAQ with level 2 band Side bilateral Comments 5 reps B slowly, alternating Standing Exercises Heel raises on one leg Comments 13 reps today with one thumb on wall Other Exercises Reviewed all HEP exercises, progressed band resistance Comments Reviewed his HEP, answered questions PT-OP-T Assessment and Plan Start: 05/01/20 07:21 Freq: Status: Active Protocol: Document 06/12/20 08:16 MB (Rec: 06/12/20 08:53 MB [id number]) Physical Therapy Assessment Rehab Potential Rehabilitation Potential Good Evaluation Complexity Number of Personal Factors/Comorbidities 1-2 Number of Body Systems Impaired 1-2 Clinical Presentation at Evaluation Stable Impairments Impairments Balance,Edema,Gait,Pain, Posture,ROM,Soft Tissue Mobility,Strength Other Concerns Fall Risk No Goals 6 [employer] Goal (LTG) Pt will perform SLS left leg at least 30 sec to improve balance by 07/04/2020. 06/12/2020: 15 sec and then 30 sec LTG Duration 8 weeks 5 Commercial Collector Goal (LTG) Pt will perform 13 reps heel raises left leg to improve strength and balance by 2019. 06/12/2020: 13 reps heel raises with one finger on wall LTG Duration 8 weeks 4 Commercial Collector Goal (LTG) Pt will present with B hip abduction, right knee flexion and extension strength to 5/5 to improve functional mobility and gait by 07/04/2020. 06/12/2020: B hip abduction and left knee flexion and extension 4/5 LTG Duration 8 weeks 3 Commercial Collector Goal (LTG) Pt will perform progressive HEP with I including ROM, strengthening, flexibility, gait and balance exercises to improve strength by 07/04/2020 . 06/12/2020: Pt is performing exercises as able 2 [employer] Goal (LTG) Pt will present with improved left knee AROM to at least 0- 126 deg to improve sit to stands by 07/04/2020. 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 06/12/2020: LEF score reflects 26.25% impairment LTG Duration 8 weeks Assessment Summary Assessment Pt has progressed towards all goals since starting PT. He has met ROM, HEP and heel raise goal. He con't with left knee and B hip abductor weakness. His balance is better. Pt states he is ready to d/c given his current schedule. Will d/c PT. Physical Therapy Plan Discharge Physical Therapy Discharge Reasons Patient Request Discharge Comments Pt is running into scheduling issues
== END 2020-06-29 12:57 ==
LOC: PHYS 08:15
PROVIDERS: Family Provider Physician Assistant Medical; PCP Physician Assistant Medical; Referring Provider Orthopaedic Surgery; Visit Provider Orthopaedic Surgery
DX: S83.232D Complex tear of medial meniscus, current injury, left knee, subsequent encounter (principal); S83.512D Sprain of anterior cruciate ligament of left knee, subsequent encounter
CPT/HCPCS: 97110; 97116; 97140; 97161

== ENCOUNTER 2020-11-03 08:15 | Outpatient (RCR) | payer OTHER, MEDICAID, SELFPAY ==
--- NOTE | 2020-09-28 14:36 | PT.OIE ---
Current Diagnoses Complex tear of medial meniscus, current injury, left knee, subsequent encounter (09/28/20) Sprain of medial collateral ligament of left knee, subsequent encounter (09/28/20) Past Surgical History (Last Reviewed 08/20/19 @ 17:48 by Zoe Christina MD) History of repair of ACL History of surgery on wrist Visit Care Team Role Provider Type Geraldine Dubois PA-C Primary Care Provider Non-Staff Specialty: Medical Address: [address] [place] [address] [address], [place], [address] Email: Chris Layne PA-C Attending Provider Non-Staff Referring Provider Specialty: Medical Address: [address] [place] [address], [address] Phone: Email: Physical Therapy Initial Evaluation PT-OP-A Visit Information Start: 09/25/20 09:49 Freq: Status: Active Protocol: Document 09/28/20 12:15 MB (Rec: 09/28/20 12:33 MB [id number]) Out-Patient Physical Therapy Visit Information Visit Information Visit Type Initial Evaluation Visit Note [employer] Visit Start Time 12:15 Visit Stop Time 13:00 Total Visit Minutes 45 Visit Number 1 Evaluation Information Evaluation Date 09/28/20 PT-OP-B Current Condition Start: 09/25/20 09:49 Freq: Status: Active Protocol: Document 09/28/20 12:15 MB (Rec: 09/28/20 12:33 MB [id number]) Current Condition History of Current Condition Onset Date 08/17/2020 Current Complaints Weakness and inability to work History of Current Condition Pt underwent another arthroscopic surgery on his left knee on 08/17/2020 with ACL repair, med/lat menisectomy, debridement and repair, cartilage procedure, torn medial collateral ligament. He has 6 week follow -up tomorrow. He is now able to go up and down the steps with some difficulty. Pt states that his right knee has taken the brunt with all the left knee surgeries. He notices this with a partial squat. It is enough that he is concerned about it. His significant other is doing the [employer] work. He went to the store and pushed the cart yesterday. He is driving. He is wearing BREG articulated knee brace. He is supposed to wear it when up walking. He will ask the surgeon about the knee brace tomorrow. Pt is icing. He is having trouble sleeping. Prior Treatments and Tests 2 recent left knee arthroscopic surgeries 2019; another left knee arthroscopic surgery 1999. Pt has a history of left ankle injury Treatment Goals Patient/Caregiver Goals To strengthen his knee and get back to work PT-OP-C Subjective Start: 09/25/20 09:49 Freq: Status: Active Protocol: Document 09/28/20 12:15 MB (Rec: 09/28/20 14:10 MB [id number]) OP-PT Subjective Patient Comments Patient Comments See history of current condition Patient Reported Progress Improving Patient Questionnaires Lower Extremity Functional Scale LEFS Score 28 LEFS Impairment 60 to 79% Impaired (Score 17- 31) PT-OP-D Balance Start: 09/25/20 09:49 Freq: Status: Active Protocol: Document 09/28/20 12:15 MB (Rec: 09/28/20 14:34 MB [id number]) OP-PT Balance Assessment Sitting Balance Static Sitting Balance Ability Normal Dynamic Sitting Balance Ability Normal Standing Balance Static Standing Balance Ability Good Dynamic Standing Balance Ability Good Balance Tests Other Other Balance Tests Performed UE support for SLS on the left Wright Fall Scale Copyright Permission PT-OP-G Mobility & Gait Start: 09/25/20 09:49 Freq: Status: Active Protocol: Document 09/28/20 12:15 MB (Rec: 09/28/20 14:34 MB [id number]) OP Gait Assessment Gait Gait Assistance Required: Independent Distance (Feet) 75 Able to Maintain Weight Bearing Status Yes During Gait Assistive Devices Assistive Device None Orthotic/Prosthetic Devices or Brace: No Gait Deviations General Gait Pattern Antalgic,Decreased Stride Length Comments Gait Comments First, pt wears articulating knee brace and his gait is slower, more antalgic and with less foot clearance, step- length and reciprocity. After brace removed and pt gait in socks, he presents with improved miladis, step-length and reciprocal pattern. Ongoing decreased left knee flexion, heel strike and toe off. PT-OP-J Posture/Palpation/Skin Start: 09/25/20 09:49 Freq: Status: Active Protocol: Document 09/28/20 12:15 MB (Rec: 09/28/20 14:34 MB [id number]) Skin Assessment Other Assessments Skin Assessment Comments Left knee: Pt with 4 medial knee scars, 1 lateral knee scar and 1 small scab lateral patella PT-OP-K Range of Motion Start: 09/25/20 09:49 Freq: Status: Active Protocol: Document 09/28/20 12:15 MB (Rec: 09/28/20 14:34 MB [id number]) Knee Goniometric Range of Motion Knee Left Knee ROM WFL No Patient Position Supine Flexion Active (degrees) 119 Extension Active (degrees) 8 Right Knee ROM WFL Yes Patient Position Supine Flexion Active (degrees) 133 Extension Active (degrees) 0 PT-OP-M Strength Start: 09/25/20 09:49 Freq: Status: Active Protocol: Document 09/28/20 12:15 MB (Rec: 09/28/20 14:34 MB [id number]) Hip Strength Hip Manual Muscle Testing Left Comments MMT deferred today d/t overall LLE discomfort Right Flexion (L2) 4 Good Abduction 3+ Fair+ Knee Strength Knee Manual Muscle Testing Right Flexion (S2) 5 Normal Extension (L3) 5 Normal Left Comments MMT left knee deferred d/t discomfort today Ankle/Foot Strength Ankle and Foot Manual Muscle Testing Left Dorsiflexion (L4) 4 Good Inversion 4 Good Eversion (S1) 3 Fair Comments With hands on wall, pt is able to perform 11 partial heel raises on left foot Right Dorsiflexion (L4) 5 Normal Plantarflexion (S1) 5 Normal Inversion 5 Normal Eversion (S1) 5 Normal Comments In standing with hands on wall for balance, pt can perform at least 20 heel raises PT-OP-Q Treatments Start: 09/25/20 09:49 Freq: Status: Active Protocol: Document 09/28/20 12:15 MB (Rec: 09/28/20 14:11 MB [id number]) Manual Therapy Treatment Other Other Manual Treatments Left PF, vastus lateralis and posterior distal adductors STM , lavage posterior left knee PT-OP-T Assessment and Plan Start: 09/25/20 09:49 Freq: Status: Active Protocol: Document 09/28/20 12:15 MB (Rec: 09/28/20 14:34 MB [id number]) Physical Therapy Assessment Rehab Potential Rehabilitation Potential Good Evaluation Complexity Number of Personal Factors/Comorbidities 1-2 Number of Body Systems Impaired 1-2 Clinical Presentation at Evaluation Stable Impairments Impairments Balance,Gait,Integument,Pain, ROM,Soft Tissue Mobility, Strength Goals 6 Jail Goal (LTG) Pt will perform SLS left leg at least 30 sec to improve balance by 11/26/20. LTG Duration 8 weeks 5 Servicing Rep Goal (LTG) Pt will perform 20 reps heel raises left leg to improve strength and balance by . LTG Duration 8 weeks 4 Servicing Rep Goal (LTG) Pt will present with B hip abduction and flexion and left knee flexion and extension strength to 5/5 to improve functional strength by 11/26/20 . LTG Duration 8 weeks 3 Servicing Rep Goal (LTG) Pt will perform progressive HEP with I including ROM, strengthening, flexibility, gait and balance exercises to improve strength by 11/26/20. LTG Duration 8 weeks 2 Jail Goal (LTG) Pt will present with improved left knee AROM to at least 0- 130 deg to improve sit to stands by 11/26/20. 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 LTG Duration 8 weeks Assessment Summary Assessment Pt is a 45 y/o male presenting with decreased left knee ROM, B LE strength, and impaired balance and strength s/p a second left knee arthroscopic surgery 08/17/2020. This therapist saw pt post-op previous arthroscopic surgery earlier in the year in 2019. At the end of that PT course, pt reported a nodule on the side of his knee and instability. He was found to have MCL and other knee changes that the recent surgery address. Pt wearrs an articulating knee brace on his left leg upon arrival today. He states that he has not been wearing it at home. His 6 week follow-up with surgeon is tomorrow and he will ask the surgeon about futher use of the brace. Pt will benefit from PT for flexibility, strengthening, balance, gait and manual work. Barriers include pt stopping therapy early in previous PT durations . He also gets back to work very soon after injuries. Physical Therapy Plan Frequency and Duration Frequency of Treatment 2x/Week Duration of Treatment 8 weeks Plan of Care Start Date 09/28/20 Plan of Care End Date 11/26/20 Therapeutic Interventions Therapeutic Interventions Balance Training,Canalithic Repositioning,Coordination Training,Gait Training,Home Exercise Program,Joint Mobilizations,Manual Therapy, Neuromuscular Re-education, Patient/Caregiver Education, Self-Care/Home Management, Sensory Integration,Soft Tissue Mobilization,Taping, Therapeutic Activities, Therapeutic Exercises Modalities Cold Pack/Ice Massage,Electric Stimulation,Hot Packs, Ultrasound Next Visit Focus/Plan Next Note Type Treatment Note Next Visit Plan Initiate recumbent stepper vs bike, review previous exercises if pt brings in and add back what is currently appropriate, ongoing manual work
--- NOTE | 2020-09-28 14:37 | PT.OPPOC ---
Physical, Occupational & Speech Therapy At [facility] Current Diagnoses Complex tear of medial meniscus, current injury, left knee, subsequent encounter (09/28/20) Sprain of medial collateral ligament of left knee, subsequent encounter (09/28/20) Visit Care Team Role Provider Type Geraldine Dubois PA-C Primary Care Provider Non-Staff Specialty: Medical Address: [address] [place] [address] [address], [place], [address] Email: Chris Layne PA-C Attending Provider Non-Staff Referring Provider Specialty: Medical Address: [address] [place] [address], [address] Phone: Email: Plan Of Care PT-OP-T Assessment and Plan Start: 09/25/20 09:49 Freq: Status: Active Protocol: Document 09/28/20 12:15 MB (Rec: 09/28/20 14:34 MB [id number]) Physical Therapy Assessment Rehab Potential Rehabilitation Potential Good Evaluation Complexity Number of Personal Factors/Comorbidities 1-2 Number of Body Systems Impaired 1-2 Clinical Presentation at Evaluation Stable Impairments Impairments Balance,Gait,Integument,Pain, ROM,Soft Tissue Mobility, Strength Goals 6 Leader Writer Goal (LTG) Pt will perform SLS left leg at least 30 sec to improve balance by 11/26/20. LTG Duration 8 weeks 5 Leader Writer Goal (LTG) Pt will perform 20 reps heel raises left leg to improve strength and balance by . LTG Duration 8 weeks 4 Halfway Goal (LTG) Pt will present with B hip abduction and flexion and left knee flexion and extension strength to 5/5 to improve functional strength by 11/26/20 . LTG Duration 8 weeks 3 Leader Writer Goal (LTG) Pt will perform progressive HEP with I including ROM, strengthening, flexibility, gait and balance exercises to improve strength by 11/26/20. LTG Duration 8 weeks 2 Leader Writer Goal (LTG) Pt will present with improved left knee AROM to at least 0- 130 deg to improve sit to stands by 11/26/20. 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 LTG Duration 8 weeks Assessment Summary Assessment Pt is a 45 y/o male presenting with decreased left knee ROM, B LE strength, and impaired balance and strength s/p a second left knee arthroscopic surgery 08/17/2020. This therapist saw pt post-op previous arthroscopic surgery earlier in the year in 2019. At the end of that PT course, pt reported a nodule on the side of his knee and instability. He was found to have MCL and other knee changes that the recent surgery address. Pt wearrs an articulating knee brace on his left leg upon arrival today. He states that he has not been wearing it at home. His 6 week follow-up with surgeon is tomorrow and he will ask the surgeon about futher use of the brace. Pt will benefit from PT for flexibility, strengthening, balance, gait and manual work. Barriers include pt stopping therapy early in previous PT durations . He also gets back to work very soon after injuries. Physical Therapy Plan Frequency and Duration Frequency of Treatment 2x/Week Duration of Treatment 8 weeks Plan of Care Start Date 09/28/20 Plan of Care End Date 11/26/20 Therapeutic Interventions Therapeutic Interventions Balance Training,Canalithic Repositioning,Coordination Training,Gait Training,Home Exercise Program,Joint Mobilizations,Manual Therapy, Neuromuscular Re-education, Patient/Caregiver Education, Self-Care/Home Management, Sensory Integration,Soft Tissue Mobilization,Taping, Therapeutic Activities, Therapeutic Exercises Modalities Cold Pack/Ice Massage,Electric Stimulation,Hot Packs, Ultrasound Next Visit Focus/Plan Next Note Type Treatment Note Next Visit Plan Initiate recumbent stepper vs bike, review previous exercises if pt brings in and add back what is currently appropriate, ongoing manual work Plan of Care Dates Plan of Care Start Date 09/28/20 Plan of Care End Date 11/26/20 Electronically Signed by: Mayra Palomino, PT 09/28/20 [id number] Please Sign and Return: I have reviewed this Plan of Care and certify that the skilled therapy services above are required to meet the patient?s needs. Physician Signature Date Printed Name and Credentials Clinical Instructor Signature Printed Name and Credentials
--- NOTE | 2020-10-01 09:00 | PT.OTN ---
Current Diagnoses Complex tear of medial meniscus, current injury, left knee, subsequent encounter (10/01/20) Sprain of medial collateral ligament of left knee, subsequent encounter (10/01/20) Physical Therapy Treatment Note PT-OP-A Visit Information Start: 09/25/20 09:49 Freq: Status: Active Protocol: Document 10/01/20 08:16 MB (Rec: 10/01/20 08:44 MB [id number]) Out-Patient Physical Therapy Visit Information Visit Information Visit Type Treatment Note Visit Start Time 08:16 Visit Stop Time 09:00 Total Visit Minutes 44 Visit Number 2 PT-OP-B Current Condition Start: 09/25/20 09:49 Freq: Status: Active Protocol: Document 09/28/20 12:15 MB (Rec: 09/28/20 12:33 MB [id number]) Current Condition History of Current Condition Onset Date 08/17/2020 Current Complaints Weakness and inability to work History of Current Condition Pt underwent another arthroscopic surgery on his left knee on 08/17/2020 with ACL repair, med/lat menisectomy, debridement and repair, cartilage procedure, torn medial collateral ligament. He has 6 week follow -up tomorrow. He is now able to go up and down the steps with some difficulty. Pt states that his right knee has taken the brunt with all the left knee surgeries. He notices this with a partial squat. It is enough that he is concerned about it. His significant other is doing the [employer] work. He went to the store and pushed the cart yesterday. He is driving. He is wearing BREG articulated knee brace. He is supposed to wear it when up walking. He will ask the surgeon about the knee brace tomorrow. Pt is icing. He is having trouble sleeping. Prior Treatments and Tests 2 recent left knee arthroscopic surgeries 2019; another left knee arthroscopic surgery 1999. Pt has a history of left ankle injury Treatment Goals Patient/Caregiver Goals To strengthen his knee and get back to work PT-OP-C Subjective Start: 09/25/20 09:49 Freq: Status: Active Protocol: Document 10/01/20 08:16 MB (Rec: 10/01/20 08:44 MB [id number]) OP-PT Subjective Patient Comments Patient Comments Pt returned to the doctor and the doctor told him that he needs to work on extension. The doctor told him the nodule was from healing and the Regan's cyst was liquid. He wants to get a stationary bike . PT-OP-D Balance Start: 09/25/20 09:49 Freq: Status: Active Protocol: Document 09/28/20 12:15 MB (Rec: 09/28/20 14:34 MB [id number]) OP-PT Balance Assessment Sitting Balance Static Sitting Balance Ability Normal Dynamic Sitting Balance Ability Normal Standing Balance Static Standing Balance Ability Good Dynamic Standing Balance Ability Good Balance Tests Other Other Balance Tests Performed UE support for SLS on the left Wright Fall Scale Copyright Permission PT-OP-G Mobility & Gait Start: 09/25/20 09:49 Freq: Status: Active Protocol: Document 09/28/20 12:15 MB (Rec: 09/28/20 14:34 MB [id number]) OP Gait Assessment Gait Gait Assistance Required: Independent Distance (Feet) 75 Able to Maintain Weight Bearing Status Yes During Gait Assistive Devices Assistive Device None Orthotic/Prosthetic Devices or Brace: No Gait Deviations General Gait Pattern Antalgic,Decreased Stride Length Comments Gait Comments First, pt wears articulating knee brace and his gait is slower, more antalgic and with less foot clearance, step- length and reciprocity. After brace removed and pt gait in socks, he presents with improved miladis, step-length and reciprocal pattern. Ongoing decreased left knee flexion, heel strike and toe off. PT-OP-J Posture/Palpation/Skin Start: 09/25/20 09:49 Freq: Status: Active Protocol: Document 09/28/20 12:15 MB (Rec: 09/28/20 14:34 MB [id number]) Skin Assessment Other Assessments Skin Assessment Comments Left knee: Pt with 4 medial knee scars, 1 lateral knee scar and 1 small scab lateral patella PT-OP-K Range of Motion Start: 09/25/20 09:49 Freq: Status: Active Protocol: Document 09/28/20 12:15 MB (Rec: 09/28/20 14:34 MB [id number]) Knee Goniometric Range of Motion Knee Left Knee ROM WFL No Patient Position Supine Flexion Active (degrees) 119 Extension Active (degrees) 8 Right Knee ROM WFL Yes Patient Position Supine Flexion Active (degrees) 133 Extension Active (degrees) 0 PT-OP-M Strength Start: 09/25/20 09:49 Freq: Status: Active Protocol: Document 09/28/20 12:15 MB (Rec: 09/28/20 14:34 MB [id number]) Hip Strength Hip Manual Muscle Testing Left Comments MMT deferred today d/t overall LLE discomfort Right Flexion (L2) 4 Good Abduction 3+ Fair+ Knee Strength Knee Manual Muscle Testing Right Flexion (S2) 5 Normal Extension (L3) 5 Normal Left Comments MMT left knee deferred d/t discomfort today Ankle/Foot Strength Ankle and Foot Manual Muscle Testing Left Dorsiflexion (L4) 4 Good Inversion 4 Good Eversion (S1) 3 Fair Comments With hands on wall, pt is able to perform 11 partial heel raises on left foot Right Dorsiflexion (L4) 5 Normal Plantarflexion (S1) 5 Normal Inversion 5 Normal Eversion (S1) 5 Normal Comments In standing with hands on wall for balance, pt can perform at least 20 heel raises PT-OP-Q Treatments Start: 09/25/20 09:49 Freq: Status: Active Protocol: Document 10/01/20 08:16 MB (Rec: 10/01/20 08:44 MB [id number]) Cardio Equipment Bicycle (Upright) Duration (Minutes) 10 Resistance 10 Seat Position 8 Therapeutic Exercises Supine Exercises Passive extension stretch Comments LLE 1' HS Side left Comments 5 reps today Rashaun stretch with abdominal drawing in Side bilateral Comments 1 rep 45 sec hold, core engaged Hamstring, calf, adductor and abductor stretch Side bilateral Comments APs with stretch Sitting Exercises HS stretch Comments Verbally reviewed today and also sitting HS, handouts for HEP Manual Therapy Treatment Other Other Manual Treatments Left PF, vastus lateralis and posterior distal adductors STM , lavage posterior left knee PT-OP-T Assessment and Plan Start: 09/25/20 09:49 Freq: Status: Active Protocol: Document 10/01/20 08:16 MB (Rec: 10/01/20 08:44 MB [id number]) Physical Therapy Assessment Rehab Potential Rehabilitation Potential Good Evaluation Complexity Number of Personal Factors/Comorbidities 1-2 Number of Body Systems Impaired 1-2 Clinical Presentation at Evaluation Stable Impairments Impairments Balance,Gait,Integument,Pain, ROM,Soft Tissue Mobility, Strength Goals 6 [facility] Goal (LTG) Pt will perform SLS left leg at least 30 sec to improve balance by 11/26/20. LTG Duration 8 weeks 5 [facility]ci Goal (LTG) Pt will perform 20 reps heel raises left leg to improve strength and balance by . LTG Duration 8 weeks 4 [facility]ci Goal (LTG) Pt will present with B hip abduction and flexion and left knee flexion and extension strength to 5/5 to improve functional strength by 11/26/20 . LTG Duration 8 weeks 3 [facility]ci Goal (LTG) Pt will perform progressive HEP with I including ROM, strengthening, flexibility, gait and balance exercises to improve strength by 11/26/20. LTG Duration 8 weeks 2 [facility]ci Goal (LTG) Pt will present with improved left knee AROM to at least 0- 130 deg to improve sit to stands by 11/26/20. 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 LTG Duration 8 weeks Assessment Summary Assessment Progressed flexibility exercises today and upright stationary bike. Ongoing manual work assists with fascial flexibility and edema. Physical Therapy Plan Frequency and Duration Frequency of Treatment 2x/Week Duration of Treatment 8 weeks Plan of Care Start Date 09/28/20 Plan of Care End Date 11/26/20 Therapeutic Interventions Therapeutic Interventions Balance Training,Canalithic Repositioning,Coordination Training,Gait Training,Home Exercise Program,Joint Mobilizations,Manual Therapy, Neuromuscular Re-education, Patient/Caregiver Education, Self-Care/Home Management, Sensory Integration,Soft Tissue Mobilization,Taping, Therapeutic Activities, Therapeutic Exercises Modalities Cold Pack/Ice Massage,Electric Stimulation,Hot Packs, Ultrasound Next Visit Focus/Plan Next Note Type Treatment Note Next Visit Plan Progress exercises, ongoing manual work
--- NOTE | 2020-10-06 09:01 | PT.OTN ---
Current Diagnoses Complex tear of medial meniscus, current injury, left knee, subsequent encounter (10/06/20) Sprain of medial collateral ligament of left knee, subsequent encounter (10/06/20) Physical Therapy Treatment Note PT-OP-A Visit Information Start: 09/25/20 09:49 Freq: Status: Active Protocol: Document 10/06/20 08:18 MB (Rec: 10/06/20 08:43 MB [id number]) Out-Patient Physical Therapy Visit Information Visit Information Visit Type Treatment Note Visit Note [employer], 1 eval and 24 units Visit Start Time 08:18 Visit Stop Time 09:00 Total Visit Minutes 42 Visit Number 3rd visits, 24 units PT-OP-B Current Condition Start: 09/25/20 09:49 Freq: Status: Active Protocol: Document 09/28/20 12:15 MB (Rec: 09/28/20 12:33 MB [id number]) Current Condition History of Current Condition Onset Date 08/17/2020 Current Complaints Weakness and inability to work History of Current Condition Pt underwent another arthroscopic surgery on his left knee on 08/17/2020 with ACL repair, med/lat menisectomy, debridement and repair, cartilage procedure, torn medial collateral ligament. He has 6 week follow -up tomorrow. He is now able to go up and down the steps with some difficulty. Pt states that his right knee has taken the brunt with all the left knee surgeries. He notices this with a partial squat. It is enough that he is concerned about it. His significant other is doing the [employer] work. He went to the store and pushed the cart yesterday. He is driving. He is wearing BREG articulated knee brace. He is supposed to wear it when up walking. He will ask the surgeon about the knee brace tomorrow. Pt is icing. He is having trouble sleeping. Prior Treatments and Tests 2 recent left knee arthroscopic surgeries 2019; another left knee arthroscopic surgery 1999. Pt has a history of left ankle injury Treatment Goals Patient/Caregiver Goals To strengthen his knee and get back to work PT-OP-C Subjective Start: 09/25/20 09:49 Freq: Status: Active Protocol: Document 10/06/20 08:18 MB (Rec: 10/06/20 08:43 MB [id number]) OP-PT Subjective Patient Comments Patient Comments I have some good days and I'm sleeping a little better. PT-OP-D Balance Start: 09/25/20 09:49 Freq: Status: Active Protocol: Document 09/28/20 12:15 MB (Rec: 09/28/20 14:34 MB [id number]) OP-PT Balance Assessment Sitting Balance Static Sitting Balance Ability Normal Dynamic Sitting Balance Ability Normal Standing Balance Static Standing Balance Ability Good Dynamic Standing Balance Ability Good Balance Tests Other Other Balance Tests Performed UE support for SLS on the left Wright Fall Scale Copyright Permission PT-OP-G Mobility & Gait Start: 09/25/20 09:49 Freq: Status: Active Protocol: Document 09/28/20 12:15 MB (Rec: 09/28/20 14:34 MB [id number]) OP Gait Assessment Gait Gait Assistance Required: Independent Distance (Feet) 75 Able to Maintain Weight Bearing Status Yes During Gait Assistive Devices Assistive Device None Orthotic/Prosthetic Devices or Brace: No Gait Deviations General Gait Pattern Antalgic,Decreased Stride Length Comments Gait Comments First, pt wears articulating knee brace and his gait is slower, more antalgic and with less foot clearance, step- length and reciprocity. After brace removed and pt gait in socks, he presents with improved miladis, step-length and reciprocal pattern. Ongoing decreased left knee flexion, heel strike and toe off. PT-OP-J Posture/Palpation/Skin Start: 09/25/20 09:49 Freq: Status: Active Protocol: Document 09/28/20 12:15 MB (Rec: 09/28/20 14:34 MB [id number]) Skin Assessment Other Assessments Skin Assessment Comments Left knee: Pt with 4 medial knee scars, 1 lateral knee scar and 1 small scab lateral patella PT-OP-K Range of Motion Start: 09/25/20 09:49 Freq: Status: Active Protocol: Document 09/28/20 12:15 MB (Rec: 09/28/20 14:34 MB [id number]) Knee Goniometric Range of Motion Knee Left Knee ROM WFL No Patient Position Supine Flexion Active (degrees) 119 Extension Active (degrees) 8 Right Knee ROM WFL Yes Patient Position Supine Flexion Active (degrees) 133 Extension Active (degrees) 0 PT-OP-M Strength Start: 09/25/20 09:49 Freq: Status: Active Protocol: Document 09/28/20 12:15 MB (Rec: 09/28/20 14:34 MB [id number]) Hip Strength Hip Manual Muscle Testing Left Comments MMT deferred today d/t overall LLE discomfort Right Flexion (L2) 4 Good Abduction 3+ Fair+ Knee Strength Knee Manual Muscle Testing Right Flexion (S2) 5 Normal Extension (L3) 5 Normal Left Comments MMT left knee deferred d/t discomfort today Ankle/Foot Strength Ankle and Foot Manual Muscle Testing Left Dorsiflexion (L4) 4 Good Inversion 4 Good Eversion (S1) 3 Fair Comments With hands on wall, pt is able to perform 11 partial heel raises on left foot Right Dorsiflexion (L4) 5 Normal Plantarflexion (S1) 5 Normal Inversion 5 Normal Eversion (S1) 5 Normal Comments In standing with hands on wall for balance, pt can perform at least 20 heel raises PT-OP-Q Treatments Start: 09/25/20 09:49 Freq: Status: Active Protocol: Document 10/06/20 08:18 MB (Rec: 10/06/20 08:43 MB [id number]) Therapeutic Exercises Supine Exercises SLR Side bilateral Comments 10 slowly Hip rotator stretch Supine Exercise Name Performed hook lying and to do sitting as well Side bilateral Comments 30 sec, figure 4 position, 3 reps Rashaun stretch with abdominal drawing in Side bilateral Reps/Minutes 30 sec hold Comments Performed with pelvic tilt, slide heel back Standing Exercises Knee flexion on step Side bilateral Comments Hold onto rails, foot 2 steps up, flexion stretch Manual Therapy Treatment Other Other Manual Treatments Left PF, vastus lateralis and posterior distal adductors STM , lavage posterior left knee, isometric adduction and abduction PT-OP-T Assessment and Plan Start: 09/25/20 09:49 Freq: Status: Active Protocol: Document 10/06/20 08:18 MB (Rec: 10/06/20 08:43 MB [id number]) Physical Therapy Assessment Rehab Potential Rehabilitation Potential Good Evaluation Complexity Number of Personal Factors/Comorbidities 1-2 Number of Body Systems Impaired 1-2 Clinical Presentation at Evaluation Stable Impairments Impairments Balance,Gait,Integument,Pain, ROM,Soft Tissue Mobility, Strength Goals 6 Correction Goal (LTG) Pt will perform SLS left leg at least 30 sec to improve balance by 11/26/20. LTG Duration 8 weeks 5 Correction Goal (LTG) Pt will perform 20 reps heel raises left leg to improve strength and balance by . LTG Duration 8 weeks 4 Rn Lactation Consultant Goal (LTG) Pt will present with B hip abduction and flexion and left knee flexion and extension strength to 5/5 to improve functional strength by 11/26/20 . LTG Duration 8 weeks 3 Rn Lactation Consultant Goal (LTG) Pt will perform progressive HEP with I including ROM, strengthening, flexibility, gait and balance exercises to improve strength by 11/26/20. 10/06/20: Pt is performing HS lying, hamstring with AP lying down, Rashaun stretch, standing knee flexion stretch on step, SLR, hip rotator stretch lying and sitting LTG Duration 8 weeks 2 Rn Lactation Consultant Goal (LTG) Pt will present with improved left knee AROM to at least 0- 130 deg to improve sit to stands by 11/26/20. 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 LTG Duration 8 weeks Assessment Summary Assessment Pt states that he is looking for a stationary bike. Progressed SLR and knee flexion on step today. Con't progression. Physical Therapy Plan Frequency and Duration Frequency of Treatment 2x/Week Duration of Treatment 8 weeks Plan of Care Start Date 09/28/20 Plan of Care End Date 11/26/20 Therapeutic Interventions Therapeutic Interventions Balance Training,Canalithic Repositioning,Coordination Training,Gait Training,Home Exercise Program,Joint Mobilizations,Manual Therapy, Neuromuscular Re-education, Patient/Caregiver Education, Self-Care/Home Management, Sensory Integration,Soft Tissue Mobilization,Taping, Therapeutic Activities, Therapeutic Exercises Modalities Cold Pack/Ice Massage,Electric Stimulation,Hot Packs, Ultrasound Next Visit Focus/Plan Next Note Type Treatment Note Next Visit Plan Progress exercises, ongoing manual work
--- NOTE | 2020-10-14 08:46 | PT.OTN ---
Current Diagnoses Complex tear of medial meniscus, current injury, left knee, subsequent encounter (10/14/20) Sprain of medial collateral ligament of left knee, subsequent encounter (10/14/20) Physical Therapy Treatment Note PT-OP-A Visit Information Start: 09/25/20 09:49 Freq: Status: Active Protocol: Document 10/14/20 08:06 MB (Rec: 10/14/20 08:34 MB [id number]) Out-Patient Physical Therapy Visit Information Visit Information Visit Type Treatment Note Visit Note [employer], 1 eval and 24 units Visit Start Time 08:06 Visit Stop Time 08:46 Total Visit Minutes 40 Visit Number 3rd visits, 06/04 units PT-OP-B Current Condition Start: 09/25/20 09:49 Freq: Status: Active Protocol: Document 09/28/20 12:15 MB (Rec: 09/28/20 12:33 MB [id number]) Current Condition History of Current Condition Onset Date 08/17/2020 Current Complaints Weakness and inability to work History of Current Condition Pt underwent another arthroscopic surgery on his left knee on 08/17/2020 with ACL repair, med/lat menisectomy, debridement and repair, cartilage procedure, torn medial collateral ligament. He has 6 week follow -up tomorrow. He is now able to go up and down the steps with some difficulty. Pt states that his right knee has taken the brunt with all the left knee surgeries. He notices this with a partial squat. It is enough that he is concerned about it. His significant other is doing the [employer] work. He went to the store and pushed the cart yesterday. He is driving. He is wearing BREG articulated knee brace. He is supposed to wear it when up walking. He will ask the surgeon about the knee brace tomorrow. Pt is icing. He is having trouble sleeping. Prior Treatments and Tests 2 recent left knee arthroscopic surgeries 2019; another left knee arthroscopic surgery 1999. Pt has a history of left ankle injury Treatment Goals Patient/Caregiver Goals To strengthen his knee and get back to work PT-OP-C Subjective Start: 09/25/20 09:49 Freq: Status: Active Protocol: Document 10/14/20 08:06 MB (Rec: 10/14/20 08:34 MB [id number]) OP-PT Subjective Patient Comments Patient Comments I had a feed bin fall on me. Pt reports that it fell on his right side while he was standing and his left knee hyperextended. He felt it broke up the scar tissue and he did not hear a pop. The knee swelled a little and he called the surgeon. He is using Voltaren. PT-OP-D Balance Start: 09/25/20 09:49 Freq: Status: Active Protocol: Document 09/28/20 12:15 MB (Rec: 09/28/20 14:34 MB [id number]) OP-PT Balance Assessment Sitting Balance Static Sitting Balance Ability Normal Dynamic Sitting Balance Ability Normal Standing Balance Static Standing Balance Ability Good Dynamic Standing Balance Ability Good Balance Tests Other Other Balance Tests Performed UE support for SLS on the left Wright Fall Scale Copyright Permission PT-OP-G Mobility & Gait Start: 09/25/20 09:49 Freq: Status: Active Protocol: Document 09/28/20 12:15 MB (Rec: 09/28/20 14:34 MB [id number]) OP Gait Assessment Gait Gait Assistance Required: Independent Distance (Feet) 75 Able to Maintain Weight Bearing Status Yes During Gait Assistive Devices Assistive Device None Orthotic/Prosthetic Devices or Brace: No Gait Deviations General Gait Pattern Antalgic,Decreased Stride Length Comments Gait Comments First, pt wears articulating knee brace and his gait is slower, more antalgic and with less foot clearance, step- length and reciprocity. After brace removed and pt gait in socks, he presents with improved miladis, step-length and reciprocal pattern. Ongoing decreased left knee flexion, heel strike and toe off. PT-OP-J Posture/Palpation/Skin Start: 09/25/20 09:49 Freq: Status: Active Protocol: Document 09/28/20 12:15 MB (Rec: 09/28/20 14:34 MB [id number]) Skin Assessment Other Assessments Skin Assessment Comments Left knee: Pt with 4 medial knee scars, 1 lateral knee scar and 1 small scab lateral patella PT-OP-K Range of Motion Start: 09/25/20 09:49 Freq: Status: Active Protocol: Document 09/28/20 12:15 MB (Rec: 09/28/20 14:34 MB [id number]) Knee Goniometric Range of Motion Knee Left Knee ROM WFL No Patient Position Supine Flexion Active (degrees) 119 Extension Active (degrees) 8 Right Knee ROM WFL Yes Patient Position Supine Flexion Active (degrees) 133 Extension Active (degrees) 0 PT-OP-M Strength Start: 09/25/20 09:49 Freq: Status: Active Protocol: Document 09/28/20 12:15 MB (Rec: 09/28/20 14:34 MB [id number]) Hip Strength Hip Manual Muscle Testing Left Comments MMT deferred today d/t overall LLE discomfort Right Flexion (L2) 4 Good Abduction 3+ Fair+ Knee Strength Knee Manual Muscle Testing Right Flexion (S2) 5 Normal Extension (L3) 5 Normal Left Comments MMT left knee deferred d/t discomfort today Ankle/Foot Strength Ankle and Foot Manual Muscle Testing Left Dorsiflexion (L4) 4 Good Inversion 4 Good Eversion (S1) 3 Fair Comments With hands on wall, pt is able to perform 11 partial heel raises on left foot Right Dorsiflexion (L4) 5 Normal Plantarflexion (S1) 5 Normal Inversion 5 Normal Eversion (S1) 5 Normal Comments In standing with hands on wall for balance, pt can perform at least 20 heel raises PT-OP-Q Treatments Start: 09/25/20 09:49 Freq: Status: Active Protocol: Document 10/14/20 08:06 MB (Rec: 10/14/20 08:34 MB [id number]) Cardio Equipment Bicycle (Upright) Duration (Minutes) 10 Resistance 11 Seat Position 7 Therapeutic Exercises Supine Exercises Bridge Reps/Minutes Up to 30 sec, cues to lift hips Comments 2 reps without band and then 1 rep with level 1 band around knees Hip rotator stretch Supine Exercise Name Performed hook lying and to do sitting as well Side bilateral Comments 30 sec, figure 4 position, 3 reps Rashaun stretch with abdominal drawing in Reps/Minutes 30 sec Comments B, pelvic tilt and abdominal drawing in Hamstring, calf, adductor and abductor stretch Reps/Minutes 30 sec, 1 rep each Comments B and performed with hands behind leg today Manual Therapy Treatment Other Other Manual Treatments Left PF, vastus lateralis and posterior distal adductors STM , lavage posterior left knee, isometric adduction and abduction PT-OP-T Assessment and Plan Start: 09/25/20 09:49 Freq: Status: Active Protocol: Document 10/14/20 08:06 MB (Rec: 10/14/20 08:34 MB [id number]) Physical Therapy Assessment Rehab Potential Rehabilitation Potential Good Evaluation Complexity Number of Personal Factors/Comorbidities 1-2 Number of Body Systems Impaired 1-2 Clinical Presentation at Evaluation Stable Impairments Impairments Balance,Gait,Integument,Pain, ROM,Soft Tissue Mobility, Strength Goals 6 Shelter Goal (LTG) Pt will perform SLS left leg at least 30 sec to improve balance by 11/26/20. LTG Duration 8 weeks 5 Senior Marketing Manager Goal (LTG) Pt will perform 20 reps heel raises left leg to improve strength and balance by . LTG Duration 8 weeks 4 Senior Marketing Manager Goal (LTG) Pt will present with B hip abduction and flexion and left knee flexion and extension strength to / to improve functional strength by 11/26/20 . LTG Duration 8 weeks 3 Senior Marketing Manager Goal (LTG) Pt will perform progressive HEP with I including ROM, strengthening, flexibility, gait and balance exercises to improve strength by 11/26/20. 10/14/20: Pt is performing HS lying, hamstring with AP lying down, Rashaun stretch, standing knee flexion stretch on step, SLR, hip rotator stretch lying and sitting, added bridge with band around knees today LTG Duration 8 weeks 2 Senior Marketing Manager Goal (LTG) Pt will present with improved left knee AROM to at least 0- 130 deg to improve sit to stands by 11/26/20. 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 LTG Duration 8 weeks Assessment Summary Assessment Progressed exercises today, initiated strengthening. He presents with reduced bridge/ extension position for bridge. Con't manual work and PT progression Physical Therapy Plan Frequency and Duration Frequency of Treatment 2x/Week Duration of Treatment 8 weeks Plan of Care Start Date 09/28/20 Plan of Care End Date 11/26/20 Therapeutic Interventions Therapeutic Interventions Balance Training,Canalithic Repositioning,Coordination Training,Gait Training,Home Exercise Program,Joint Mobilizations,Manual Therapy, Neuromuscular Re-education, Patient/Caregiver Education, Self-Care/Home Management, Sensory Integration,Soft Tissue Mobilization,Taping, Therapeutic Activities, Therapeutic Exercises Modalities Cold Pack/Ice Massage,Electric Stimulation,Hot Packs, Ultrasound Next Visit Focus/Plan Next Note Type Treatment Note Next Visit Plan Progress LAQ with band, ankle eversion with band, standing wall squat, trauma release exercises, ongoing manual work
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
--- NOTE | 2020-10-23 10:32 | PT.OTN ---
Current Diagnoses Complex tear of medial meniscus, current injury, left knee, subsequent encounter (10/23/20) Sprain of medial collateral ligament of left knee, subsequent encounter (10/23/20) Physical Therapy Treatment Note PT-OP-A Visit Information Start: 09/25/20 09:49 Freq: Status: Active Protocol: Document 10/23/20 09:46 MB (Rec: 10/23/20 10:09 MB [id number]) Out-Patient Physical Therapy Visit Information Visit Information Visit Type Treatment Note Visit Note [employer], 1 eval and 24 units Visit Start Time 09:46 Visit Stop Time 10:30 Total Visit Minutes 44 Visit Number 6th visit, units PT-OP-B Current Condition Start: 09/25/20 09:49 Freq: Status: Active Protocol: Document 09/28/20 12:15 MB (Rec: 09/28/20 12:33 MB [id number]) Current Condition History of Current Condition Onset Date 08/17/2020 Current Complaints Weakness and inability to work History of Current Condition Pt underwent another arthroscopic surgery on his left knee on 08/17/2020 with ACL repair, med/lat menisectomy, debridement and repair, cartilage procedure, torn medial collateral ligament. He has 6 week follow -up tomorrow. He is now able to go up and down the steps with some difficulty. Pt states that his right knee has taken the brunt with all the left knee surgeries. He notices this with a partial squat. It is enough that he is concerned about it. His significant other is doing the [employer] work. He went to the store and pushed the cart yesterday. He is driving. He is wearing BREG articulated knee brace. He is supposed to wear it when up walking. He will ask the surgeon about the knee brace tomorrow. Pt is icing. He is having trouble sleeping. Prior Treatments and Tests 2 recent left knee arthroscopic surgeries 2019; another left knee arthroscopic surgery 1999. Pt has a history of left ankle injury Treatment Goals Patient/Caregiver Goals To strengthen his knee and get back to work PT-OP-C Subjective Start: 09/25/20 09:49 Freq: Status: Active Protocol: Document 10/23/20 09:46 MB (Rec: 10/23/20 10:09 MB [id number]) OP-PT Subjective Patient Comments Patient Comments My right leg is fine. My left knee is feeling better. The bridge bothered my back. PT-OP-D Balance Start: 09/25/20 09:49 Freq: Status: Active Protocol: Document 09/28/20 12:15 MB (Rec: 09/28/20 14:34 MB [id number]) OP-PT Balance Assessment Sitting Balance Static Sitting Balance Ability Normal Dynamic Sitting Balance Ability Normal Standing Balance Static Standing Balance Ability Good Dynamic Standing Balance Ability Good Balance Tests Other Other Balance Tests Performed UE support for SLS on the left Wright Fall Scale Copyright Permission PT-OP-G Mobility & Gait Start: 09/25/20 09:49 Freq: Status: Active Protocol: Document 09/28/20 12:15 MB (Rec: 09/28/20 14:34 MB [id number]) OP Gait Assessment Gait Gait Assistance Required: Independent Distance (Feet) 75 Able to Maintain Weight Bearing Status Yes During Gait Assistive Devices Assistive Device None Orthotic/Prosthetic Devices or Brace: No Gait Deviations General Gait Pattern Antalgic,Decreased Stride Length Comments Gait Comments First, pt wears articulating knee brace and his gait is slower, more antalgic and with less foot clearance, step- length and reciprocity. After brace removed and pt gait in socks, he presents with improved miladis, step-length and reciprocal pattern. Ongoing decreased left knee flexion, heel strike and toe off. PT-OP-J Posture/Palpation/Skin Start: 09/25/20 09:49 Freq: Status: Active Protocol: Document 09/28/20 12:15 MB (Rec: 09/28/20 14:34 MB [id number]) Skin Assessment Other Assessments Skin Assessment Comments Left knee: Pt with 4 medial knee scars, 1 lateral knee scar and 1 small scab lateral patella PT-OP-K Range of Motion Start: 09/25/20 09:49 Freq: Status: Active Protocol: Document 09/28/20 12:15 MB (Rec: 09/28/20 14:34 MB [id number]) Knee Goniometric Range of Motion Knee Left Knee ROM WFL No Patient Position Supine Flexion Active (degrees) 119 Extension Active (degrees) 8 Right Knee ROM WFL Yes Patient Position Supine Flexion Active (degrees) 133 Extension Active (degrees) 0 PT-OP-M Strength Start: 09/25/20 09:49 Freq: Status: Active Protocol: Document 09/28/20 12:15 MB (Rec: 09/28/20 14:34 MB [id number]) Hip Strength Hip Manual Muscle Testing Left Comments MMT deferred today d/t overall LLE discomfort Right Flexion (L2) 4 Good Abduction 3+ Fair+ Knee Strength Knee Manual Muscle Testing Right Flexion (S2) 5 Normal Extension (L3) 5 Normal Left Comments MMT left knee deferred d/t discomfort today Ankle/Foot Strength Ankle and Foot Manual Muscle Testing Left Dorsiflexion (L4) 4 Good Inversion 4 Good Eversion (S1) 3 Fair Comments With hands on wall, pt is able to perform 11 partial heel raises on left foot Right Dorsiflexion (L4) 5 Normal Plantarflexion (S1) 5 Normal Inversion 5 Normal Eversion (S1) 5 Normal Comments In standing with hands on wall for balance, pt can perform at least 20 heel raises PT-OP-Q Treatments Start: 09/25/20 09:49 Freq: Status: Active Protocol: Document 10/23/20 09:46 MB (Rec: 10/23/20 10:09 MB [id number]) Cardio Equipment Bicycle (Upright) Duration (Minutes) 10 Resistance 10 Seat Position 7 Therapeutic Exercises Supine Exercises SLR Comments Pt to con't at home and he does not want a handout Hip rotator stretch Comments Pt B, 30 sec hold and pt to con't at home Rashaun stretch with abdominal drawing in Reps/Minutes 30 sec Comments B, pelvic tilt and abdominal drawing in Hamstring, calf, adductor and abductor stretch Supine Exercise Name Will not do adductor and abductor stretch right now Comments Pt to con't performing at home with AP, 30 pump, B Sitting Exercises Rolling pin STM Comments Handout given and pt to perform at home Manual Therapy Treatment Other Other Manual Treatments Left knee PF, vastus lateralis and posterior distal adductors STM, lavage posterior left knee, gentle patellar mobs PT-OP-T Assessment and Plan Start: 09/25/20 09:49 Freq: Status: Active Protocol: Document 10/23/20 09:46 MB (Rec: 10/23/20 10:09 MB [id number]) Physical Therapy Assessment Rehab Potential Rehabilitation Potential Good Evaluation Complexity Number of Personal Factors/Comorbidities 1-2 Number of Body Systems Impaired 1-2 Clinical Presentation at Evaluation Stable Impairments Impairments Balance,Gait,Integument,Pain, ROM,Soft Tissue Mobility, Strength Goals 6 Metal Melter Goal (LTG) Pt will perform SLS left leg at least 30 sec to improve balance by 11/26/20. LTG Duration 8 weeks 5 Metal Melter Goal (LTG) Pt will perform 20 reps heel raises left leg to improve strength and balance by . LTG Duration 8 weeks 4 Metal Melter Goal (LTG) Pt will present with B hip abduction and flexion and left knee flexion and extension strength to 5/5 to improve functional strength by 11/26/20 . LTG Duration 8 weeks 3 Skilled Nursing Goal (LTG) Pt will perform progressive HEP with I including ROM, strengthening, flexibility, gait and balance exercises to improve strength by 11/26/20. 10/14/20: Pt is performing HS lying, hamstring with AP lying down, Rashaun stretch, standing knee flexion stretch on step, SLR, hip rotator stretch lying and sitting, added bridge with band around knees today LTG Duration 8 weeks 2 Metal Melter Goal (LTG) Pt will present with improved left knee AROM to at least 0- 130 deg to improve sit to stands by 11/26/20. 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 LTG Duration 8 weeks Assessment Summary Assessment Reviewed pt's available visits and adjusted plan to have three more treatments, 1x/wk for 3 weeks. Progressed exercises today and provided handouts. Will con't strengthening exercise progression in the future and consider trauma release exercises. Physical Therapy Plan Frequency and Duration Frequency of Treatment 1x/Week Duration of Treatment 3 weeks Plan of Care Start Date 10/23/20 Plan of Care End Date 11/16/20 Therapeutic Interventions Therapeutic Interventions Balance Training,Canalithic Repositioning,Coordination Training,Gait Training,Home Exercise Program,Joint Mobilizations,Manual Therapy, Neuromuscular Re-education, Patient/Caregiver Education, Self-Care/Home Management, Sensory Integration,Soft Tissue Mobilization,Taping, Therapeutic Activities, Therapeutic Exercises Modalities Cold Pack/Ice Massage,Electric Stimulation,Hot Packs, Ultrasound Next Visit Focus/Plan Next Note Type Treatment Note Next Visit Plan Progress strengthening: LAQ, crab walking, backward walking and ankle eversion with band. Con't manual work and consider trauma release exercises.
--- NOTE | 2020-10-23 11:38 | PT.OPPOC ---
Physical, Occupational & Speech Therapy At [facility] Current Diagnoses Complex tear of medial meniscus, current injury, left knee, subsequent encounter (10/23/20) Sprain of medial collateral ligament of left knee, subsequent encounter (10/23/20) Visit Care Team Role Provider Type Geraldine Dubois PA-C Primary Care Provider Non-Staff Specialty: Medical Address: [address] [place] [address] [address], [place], [address] Email: Chris Layne PA-C Attending Provider Non-Staff Referring Provider Specialty: Medical Address: [address] [place] [address], [id number] Phone: Email: Plan Of Care PT-OP-T Assessment and Plan Start: 09/25/20 09:49 Freq: Status: Active Protocol: Document 10/23/20 09:46 MB (Rec: 10/23/20 10:09 MB [id number]) Physical Therapy Assessment Rehab Potential Rehabilitation Potential Good Evaluation Complexity Number of Personal Factors/Comorbidities 1-2 Number of Body Systems Impaired 1-2 Clinical Presentation at Evaluation Stable Impairments Impairments Balance,Gait,Integument,Pain, ROM,Soft Tissue Mobility, Strength Goals 6 Correction Goal (LTG) Pt will perform SLS left leg at least 30 sec to improve balance by 11/16/20. LTG Duration 3 weeks 5 Dewer Goal (LTG) Pt will perform 20 reps heel raises left leg to improve strength and balance by 11/16/20 . LTG Duration 3 weeks 4 Dewer Goal (LTG) Pt will present with B hip abduction and flexion and left knee flexion and extension strength to 5/5 to improve functional strength by 11/16/20. LTG Duration 3 weeks 3 Dewer Goal (LTG) Pt will perform progressive HEP with I including ROM, strengthening, flexibility, gait and balance exercises to improve strength by 11/16/20. 10/23/20: Pt is performing hamstring with AP lying down, Rashaun stretch, standing knee flexion stretch on step, SLR, hip rotator stretch lying and sitting, use of rolling pin for self-massage LTG Duration 3 weeks 2 Correction Goal (LTG) Pt will present with improved left knee AROM to at least 0- 130 deg to improve sit to stands by 11/16/20. 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 LTG Duration 3 weeks Progress Towards Goals Progress Towards Goals Progressing Toward Goals Assessment Summary Assessment Reviewed pt's available visits and adjusted plan to have three more treatments, 1x/wk for 3 weeks. Progressed exercises today and provided handouts. Will con't strengthening exercise progression in the future and consider trauma release exercises. Physical Therapy Plan Frequency and Duration Frequency of Treatment 1x/Week Duration of Treatment 3 weeks Plan of Care Start Date 10/23/20 Plan of Care End Date 11/16/20 Therapeutic Interventions Therapeutic Interventions Balance Training,Canalithic Repositioning,Coordination Training,Gait Training,Home Exercise Program,Joint Mobilizations,Manual Therapy, Neuromuscular Re-education, Patient/Caregiver Education, Self-Care/Home Management, Sensory Integration,Soft Tissue Mobilization,Taping, Therapeutic Activities, Therapeutic Exercises Modalities Cold Pack/Ice Massage,Electric Stimulation,Hot Packs, Ultrasound Next Visit Focus/Plan Next Note Type Treatment Note Next Visit Plan Progress strengthening: LAQ, crab walking, backward walking and ankle eversion with band. Con't manual work and consider trauma release exercises. Plan of Care Dates Plan of Care Start Date 10/23/20 Plan of Care End Date 11/16/20 Electronically Signed by: Mayra Palomino, PT 10/23/20 [id number] Please Sign and Return: I have reviewed this Plan of Care and certify that the skilled therapy services above are required to meet the patient?s needs. Physician Signature Date Printed Name and Credentials Clinical Instructor Signature Printed Name and Credentials
--- NOTE | 2020-11-03 08:58 | PT.OTN ---
Current Diagnoses Complex tear of medial meniscus, current injury, left knee, subsequent encounter (11/03/20) Sprain of medial collateral ligament of left knee, subsequent encounter (11/03/20) Physical Therapy Treatment Note PT-OP-A Visit Information Start: 09/25/20 09:49 Freq: Status: Active Protocol: Document 11/03/20 08:15 MB (Rec: 11/03/20 08:39 MB [id number]) Out-Patient Physical Therapy Visit Information Visit Information Visit Type Treatment Note Visit Note [employer], 1 eval and 24 units Visit Start Time 08:15 Visit Stop Time 08:55 Total Visit Minutes 40 Visit Number PT-OP-B Current Condition Start: 09/25/20 09:49 Freq: Status: Active Protocol: Document 09/28/20 12:15 MB (Rec: 09/28/20 12:33 MB [id number]) Current Condition History of Current Condition Onset Date 08/17/2020 Current Complaints Weakness and inability to work History of Current Condition Pt underwent another arthroscopic surgery on his left knee on 08/17/2020 with ACL repair, med/lat menisectomy, debridement and repair, cartilage procedure, torn medial collateral ligament. He has 6 week follow -up tomorrow. He is now able to go up and down the steps with some difficulty. Pt states that his right knee has taken the brunt with all the left knee surgeries. He notices this with a partial squat. It is enough that he is concerned about it. His significant other is doing the [employer] work. He went to the store and pushed the cart yesterday. He is driving. He is wearing BREG articulated knee brace. He is supposed to wear it when up walking. He will ask the surgeon about the knee brace tomorrow. Pt is icing. He is having trouble sleeping. Prior Treatments and Tests 2 recent left knee arthroscopic surgeries 2019; another left knee arthroscopic surgery 1999. Pt has a history of left ankle injury Treatment Goals Patient/Caregiver Goals To strengthen his knee and get back to work PT-OP-C Subjective Start: 09/25/20 09:49 Freq: Status: Active Protocol: Document 11/03/20 08:15 MB (Rec: 11/03/20 08:39 MB [id number]) OP-PT Subjective Patient Comments Patient Comments I'm doing pretty good. I feel like I'm pretty much done. Pt states that he bent his leg backwards in the snow. PT-OP-D Balance Start: 09/25/20 09:49 Freq: Status: Active Protocol: Document 09/28/20 12:15 MB (Rec: 09/28/20 14:34 MB [id number]) OP-PT Balance Assessment Sitting Balance Static Sitting Balance Ability Normal Dynamic Sitting Balance Ability Normal Standing Balance Static Standing Balance Ability Good Dynamic Standing Balance Ability Good Balance Tests Other Other Balance Tests Performed UE support for SLS on the left Wright Fall Scale Copyright Permission PT-OP-G Mobility & Gait Start: 09/25/20 09:49 Freq: Status: Active Protocol: Document 09/28/20 12:15 MB (Rec: 09/28/20 14:34 MB [id number]) OP Gait Assessment Gait Gait Assistance Required: Independent Distance (Feet) 75 Able to Maintain Weight Bearing Status Yes During Gait Assistive Devices Assistive Device None Orthotic/Prosthetic Devices or Brace: No Gait Deviations General Gait Pattern Antalgic,Decreased Stride Length Comments Gait Comments First, pt wears articulating knee brace and his gait is slower, more antalgic and with less foot clearance, step- length and reciprocity. After brace removed and pt gait in socks, he presents with improved miladis, step-length and reciprocal pattern. Ongoing decreased left knee flexion, heel strike and toe off. PT-OP-J Posture/Palpation/Skin Start: 09/25/20 09:49 Freq: Status: Active Protocol: Document 09/28/20 12:15 MB (Rec: 09/28/20 14:34 MB [id number]) Skin Assessment Other Assessments Skin Assessment Comments Left knee: Pt with 4 medial knee scars, 1 lateral knee scar and 1 small scab lateral patella PT-OP-K Range of Motion Start: 09/25/20 09:49 Freq: Status: Active Protocol: Document 09/28/20 12:15 MB (Rec: 09/28/20 14:34 MB [id number]) Knee Goniometric Range of Motion Knee Left Knee ROM WFL No Patient Position Supine Flexion Active (degrees) 119 Extension Active (degrees) 8 Right Knee ROM WFL Yes Patient Position Supine Flexion Active (degrees) 133 Extension Active (degrees) 0 PT-OP-M Strength Start: 09/25/20 09:49 Freq: Status: Active Protocol: Document 09/28/20 12:15 MB (Rec: 09/28/20 14:34 MB [id number]) Hip Strength Hip Manual Muscle Testing Left Comments MMT deferred today d/t overall LLE discomfort Right Flexion (L2) 4 Good Abduction 3+ Fair+ Knee Strength Knee Manual Muscle Testing Right Flexion (S2) 5 Normal Extension (L3) 5 Normal Left Comments MMT left knee deferred d/t discomfort today Ankle/Foot Strength Ankle and Foot Manual Muscle Testing Left Dorsiflexion (L4) 4 Good Inversion 4 Good Eversion (S1) 3 Fair Comments With hands on wall, pt is able to perform 11 partial heel raises on left foot Right Dorsiflexion (L4) 5 Normal Plantarflexion (S1) 5 Normal Inversion 5 Normal Eversion (S1) 5 Normal Comments In standing with hands on wall for balance, pt can perform at least 20 heel raises PT-OP-Q Treatments Start: 09/25/20 09:49 Freq: Status: Active Protocol: Document 11/03/20 08:15 MB (Rec: 11/03/20 08:39 MB [id number]) Cardio Equipment Bicycle (Upright) Duration (Minutes) 11 Resistance 11 Seat Position 7 Therapeutic Exercises Sitting Exercises Ankle eversion and DF with band Side bilateral Comments Level 2 band, DF with eversion , feet together LAQ with level 2 band Side bilateral Comments Level 1 band, 10 reps slowly, alternating Standing Exercises Crab and backward walking Side bilateral Comments Level 2 band, focus on form, side to side x2, backward x2 Manual Therapy Treatment Other Other Manual Treatments Left vastus lateralis and posterior distal adductors STM , lavage posterior left knee and PFs, gentle patellar mobs PT-OP-T Assessment and Plan Start: 09/25/20 09:49 Freq: Status: Active Protocol: Document 11/03/20 08:15 MB (Rec: 11/03/20 08:39 MB [id number]) Physical Therapy Assessment Rehab Potential Rehabilitation Potential Good Evaluation Complexity Number of Personal Factors/Comorbidities 1-2 Number of Body Systems Impaired 1-2 Clinical Presentation at Evaluation Stable Impairments Impairments Balance,Gait,Integument,Pain, ROM,Soft Tissue Mobility, Strength Goals 6 Halfway Goal (LTG) Pt will perform SLS left leg at least 30 sec to improve balance by 11/16/20. LTG Duration 3 weeks 5 Halfway Goal (LTG) Pt will perform 20 reps heel raises left leg to improve strength and balance by 11/16/20 . LTG Duration 3 weeks 4 Halfway Goal (LTG) Pt will present with B hip abduction and flexion and left knee flexion and extension strength to 5/5 to improve functional strength by 11/16/20. LTG Duration 3 weeks 3 Vocational Rehab Consultant Goal (LTG) Pt will perform progressive HEP with I including ROM, strengthening, flexibility, gait and balance exercises to improve strength by 11/16/20. 10/23/20: Pt is performing hamstring with AP lying down, Rashaun stretch, standing knee flexion stretch on step, SLR, hip rotator stretch lying and sitting, use of rolling pin for self-massage LTG Duration 3 weeks 2 Halfway Goal (LTG) Pt will present with improved left knee AROM to at least 0- 130 deg to improve sit to stands by 11/16/20. 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 LTG Duration 3 weeks Assessment Summary Assessment Progressed strengthening today . Pt performs well and reports he knows how to progress with band resistance. Anticipate d /c next treatment date. Physical Therapy Plan Frequency and Duration Frequency of Treatment 1x/Week Duration of Treatment 3 weeks Plan of Care Start Date 10/23/20 Plan of Care End Date 11/16/20 Therapeutic Interventions Therapeutic Interventions Balance Training,Canalithic Repositioning,Coordination Training,Gait Training,Home Exercise Program,Joint Mobilizations,Manual Therapy, Neuromuscular Re-education, Patient/Caregiver Education, Self-Care/Home Management, Sensory Integration,Soft Tissue Mobilization,Taping, Therapeutic Activities, Therapeutic Exercises Modalities Cold Pack/Ice Massage,Electric Stimulation,Hot Packs, Ultrasound Next Visit Focus/Plan Next Note Type Discharge Summary
--- NOTE | 2020-11-16 07:56 | PT.OPDS ---
Current Diagnoses Complex tear of medial meniscus, current injury, left knee, subsequent encounter (11/03/20) Sprain of medial collateral ligament of left knee, subsequent encounter (11/03/20) Visit Care Team Role Provider Type Geraldine Dubois PA-C Primary Care Provider Non-Staff Specialty: Medical Address: [facility] [address], [place], [address] Email: Chris Layne PA-C Attending Provider Non-Staff Referring Provider Specialty: Medical Address: [address] [place] [address], [address] Phone: Email: Visit Number Visit Number Discharge Summary PT-OP-B Current Condition Start: 09/25/20 09:49 Freq: Status: Active Protocol: Document 09/28/20 12:15 MB (Rec: 09/28/20 12:33 MB [id number]) Current Condition History of Current Condition Onset Date 08/17/2020 Current Complaints Weakness and inability to work History of Current Condition Pt underwent another arthroscopic surgery on his left knee on 08/17/2020 with ACL repair, med/lat menisectomy, debridement and repair, cartilage procedure, torn medial collateral ligament. He has 6 week follow -up tomorrow. He is now able to go up and down the steps with some difficulty. Pt states that his right knee has taken the brunt with all the left knee surgeries. He notices this with a partial squat. It is enough that he is concerned about it. His significant other is doing the [employer] work. He went to the store and pushed the cart yesterday. He is driving. He is wearing BREG articulated knee brace. He is supposed to wear it when up walking. He will ask the surgeon about the knee brace tomorrow. Pt is icing. He is having trouble sleeping. Prior Treatments and Tests 2 recent left knee arthroscopic surgeries 2019; another left knee arthroscopic surgery 1999. Pt has a history of left ankle injury Treatment Goals Patient/Caregiver Goals To strengthen his knee and get back to work PT-OP-C Subjective Start: 09/25/20 09:49 Freq: Status: Active Protocol: Document 11/03/20 08:15 MB (Rec: 11/03/20 08:39 MB [id number]) OP-PT Subjective Patient Comments Patient Comments I'm doing pretty good. I feel like I'm pretty much done. Pt states that he bent his leg backwards in the snow. PT-OP-D Balance Start: 09/25/20 09:49 Freq: Status: Active Protocol: Document 09/28/20 12:15 MB (Rec: 09/28/20 14:34 MB [id number]) OP-PT Balance Assessment Sitting Balance Static Sitting Balance Ability Normal Dynamic Sitting Balance Ability Normal Standing Balance Static Standing Balance Ability Good Dynamic Standing Balance Ability Good Balance Tests Other Other Balance Tests Performed UE support for SLS on the left Wright Fall Scale Copyright Permission PT-OP-G Mobility & Gait Start: 09/25/20 09:49 Freq: Status: Active Protocol: Document 09/28/20 12:15 MB (Rec: 09/28/20 14:34 MB [id number]) OP Gait Assessment Gait Gait Assistance Required: Independent Distance (Feet) 75 Able to Maintain Weight Bearing Status Yes During Gait Assistive Devices Assistive Device None Orthotic/Prosthetic Devices or Brace: No Gait Deviations General Gait Pattern Antalgic,Decreased Stride Length Comments Gait Comments First, pt wears articulating knee brace and his gait is slower, more antalgic and with less foot clearance, step- length and reciprocity. After brace removed and pt gait in socks, he presents with improved miladis, step-length and reciprocal pattern. Ongoing decreased left knee flexion, heel strike and toe off. PT-OP-J Posture/Palpation/Skin Start: 09/25/20 09:49 Freq: Status: Active Protocol: Document 09/28/20 12:15 MB (Rec: 09/28/20 14:34 MB [id number]) Skin Assessment Other Assessments Skin Assessment Comments Left knee: Pt with 4 medial knee scars, 1 lateral knee scar and 1 small scab lateral patella PT-OP-K Range of Motion Start: 09/25/20 09:49 Freq: Status: Active Protocol: Document 09/28/20 12:15 MB (Rec: 09/28/20 14:34 MB [id number]) Knee Goniometric Range of Motion Knee Left Knee ROM WFL No Patient Position Supine Flexion Active (degrees) 119 Extension Active (degrees) 8 Right Knee ROM WFL Yes Patient Position Supine Flexion Active (degrees) 133 Extension Active (degrees) 0 PT-OP-M Strength Start: 09/25/20 09:49 Freq: Status: Active Protocol: Document 09/28/20 12:15 MB (Rec: 09/28/20 14:34 MB [id number]) Hip Strength Hip Manual Muscle Testing Left Comments MMT deferred today d/t overall LLE discomfort Right Flexion (L2) 4 Good Abduction 3+ Fair+ Knee Strength Knee Manual Muscle Testing Right Flexion (S2) 5 Normal Extension (L3) 5 Normal Left Comments MMT left knee deferred d/t discomfort today Ankle/Foot Strength Ankle and Foot Manual Muscle Testing Left Dorsiflexion (L4) 4 Good Inversion 4 Good Eversion (S1) 3 Fair Comments With hands on wall, pt is able to perform 11 partial heel raises on left foot Right Dorsiflexion (L4) 5 Normal Plantarflexion (S1) 5 Normal Inversion 5 Normal Eversion (S1) 5 Normal Comments In standing with hands on wall for balance, pt can perform at least 20 heel raises PT-OP-T Assessment and Plan Start: 09/25/20 09:49 Freq: Status: Active Protocol: Document 11/16/20 07:52 MB (Rec: 11/16/20 07:55 MB [id number]) Physical Therapy Plan Discharge Physical Therapy Discharge Reasons Goals Met Discharge Comments Last appointment cancelled d/t therapist emergency. PT called pt and he feels ready to d/c. He is performing HEP. Will d/c PT.
== END 2020-11-17 08:23 | disposition home or self-care (01) ==
LOC: PHYS 08:15
PROVIDERS: PCP Physician Assistant Medical; Referring Provider Physician Assistant; Visit Provider Physician Assistant
DX: S83.412D Sprain of medial collateral ligament of left knee, subsequent encounter (principal); S83.232D Complex tear of medial meniscus, current injury, left knee, subsequent encounter
CPT/HCPCS: 97110; 97140; 97161

== ENCOUNTER 2021-07-19 11:46 | Emergency (ER) | payer OTHER, MEDICAID, SELFPAY ==
[2021-07-19 11:51] VITALS: PULSE 60; RESP 14; TEMP 36.2; O2SAT 99
--- NOTE | 2021-07-19 11:56 | DI.RAD.S_ITS ---
PROCEDURE: XR WRIST LT MIN 3V INDICATIONS: atraumatic pain TECHNIQUE: 4 views of the wrist were acquired. COMPARISON: None. FINDINGS: Bones: No fractures or dislocations. No suspicious bony lesions. Scaphoid view: Scaphoid fixation is present. Surgical screw is intact. Soft tissues: No suspicious soft tissue calcifications. IMPRESSION: Scaphoid fixation. No visualized acute fracture or dislocation. However, if clinical concern and/or pain persist, short interval imaging followup in 7-10 days is recommended, as occult injury cannot be definitively excluded. Dictated by: Hodan Witt M.D. on 07/19/2021 at 13:06 Approved by: Hodan Witt M.D. on 07/19/2021 at 13:08
[2021-07-19] MEDS: IBUPROFEN 400 MG TABLET 800 MG PO (12:11)
[2021-07-19 12:28] LABS: Add Manual Diff / Slide Review NO; Basophils Absolute Auto 0 /uL (0-100); Basophils Percent Auto 0.4 % (0-2); Eosinophils Absolute Auto 100 /uL (0-450); Eosinophils Percent Auto 2.1 % (2-4); Hematocrit 45.4 % (41-53); Hemoglobin 15.7 g/dL (13.5-17.5); Lymphocytes Absolute Auto 1700 /uL (1100-4500); Lymphocytes Percent Auto 28.6 % (25-40); Mean Corpuscular HGB Conc 34.5 % (30-36); Mean Corpuscular Hemoglobin 31.9 PG (26-34); Mean Corpuscular Volume 92.4 fL (80-100); Monocytes Absolute Auto 500 /uL (0-900); Monocytes Percent Auto 8.9 % (3-14); Neutrophils Absolute Auto 3500 /uL (1500-7000); Platelet Count 217 X10^3/uL (150-400); Red Blood Cell Count 4.91 X10^6/uL (4.5-5.9); Red Cell Distribution Width 12.8 % (11.6-14.8); White Blood Cell Count 5.9 X10^3/uL (4.5-11.0)
[2021-07-19 12:50] LABS: BUN Creatinine Ratio 14.9 (6-22); Blood Urea Nitrogen 17 mg/dL (9-20); C-Reactive Protein Quant < 0.5 mg/dL (<1.0); Calcium 9.8 mg/dL (8.4-10.2); Carbon Dioxide 30 mmol/L (22-32); Chloride 102 mmol/L (98-107); Estimated Glomerular Filt Rate > 60.0 mL/min (>60); Glucose 90 mg/dL (70-100); HEMOLYSIS < 15 (0-50); Potassium 4.6 mmol/L (3.4-5.1); Sodium 140 mmol/L (137-145); Uric Acid 6.2 mg/dL (3.5-8.5)
[2021-07-19 12:51] LABS: Erythrocyte Sedimentation Rate 2 MM/HR (0-15)
--- NOTE | 2021-07-19 13:27 | ED.EXTPRO ---
HPI - Extremity Problem <Boaz Garcia PA-C - Last Filed: 07/19/21 13:36> General Chief complaint: Extremity Problem,Nontraumatic Stated complaint: Pain in Lt Wrist Time Seen by Provider: 07/19/21 12:06 Source: patient Mode of arrival: Ambulatory Limitations: no limitations History of Present Illness HPI Narrative: 46-year-old male with no reported past medical history presents to the ED with left-sided wrist pain. 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 Patient states that his left wrist is prone to flaring up every so often, however never to the degree as this time. Patient reports some mild swelling to the left hand and wrist, pain with movement of the wrist. Patient endorses some tingling, denies weakness or numbness. Patient is right-hand dominant. Denies any specific trauma to the area other than repetitive motion with a slate trimmer. Reports taking ibuprofen with minimal relief. Related Data Home Medications Medication Instructions Recorded Confirmed No Known Home Medications 07/19/21 07/19/21 Allergies Allergy/AdvReac Type Severity Reaction Status Date / Time Anesthetics - Amide Type - Allergy Unknown Verified 08/20/19 10:46 Select A [Anesthetics - Amide Type] Penicillins Allergy Unknown Verified 08/20/19 10:46 Review of Systems <Boaz Garcia PA-C - Last Filed: 07/19/21 13:36> Constitutional Constitutional: Denies chills, Denies fatigue, Denies fever(s), Denies frequent falls, Denies lethargy and Denies weakness Eyes Eyes: Denies change in vision, Denies eye discharge, Denies irritation and Denies loss of vision ENT Ears, Nose, Mouth, and Throat: Denies change in voice, Denies dizziness, Denies neck pain, Denies sore throat and Denies throat swelling Cardiovascular Cardiovascular: Denies chest pain, Denies irregular heart rhythm, Denies lightheadedness, Denies palpitations, Denies dyspnea, Denies dyspnea on exertion and Denies orthopnea Respiratory Respiratory: Denies cough, Denies dyspnea, Denies dyspnea on exertion and Denies wheezing Gastrointestinal Gastrointestinal: Denies abdominal pain, Denies change in bowel habits, Denies diarrhea, Denies nausea and Denies vomiting Musculoskeletal Musculoskeletal: Denies neck pain and Denies numbness Comments: Left wrist pain, tingling, swelling Integumentary/Breasts Skin/Breast: Denies pruritus, Denies erythema, Denies rash and Denies wounds Neurologic Neurologic: Denies behavioral changes, Denies confusion, Denies dizziness, Denies frequent falls, Denies loss of vision, Denies numbness and Denies weakness Psychiatric Psychiatric: Denies anxiety, Denies behavioral changes, Denies confusion, Denies depression, Denies homicidal ideation and Denies suicidal ideation Endocrine Endocrine: Denies fatigue, Denies flushing and Denies palpitations Hematologic/Lymphatic Hematologic/Lymphatic: Denies easy bruising Allergic/Immunologic Allergic/Immunologic: Denies urticaria, Denies throat swelling and Denies wheezing Patient History <Boaz Garcia PA-C - Last Filed: 07/19/21 13:36> Surgical History History of repair of ACL History of surgery on wrist Family History Mother Cancer Social History marital status: unmarried,living together household members: significant other occupational status: employed Smoking Status: Former smoker alcohol intake: current substance use type: marijuana Smoking Status: Former smoker alcohol intake frequency: 0-2 drinks per day Substance Use Type: marijuana Exam <Boaz Garcia PA-C - Last Filed: 07/19/21 13:36> Initial Vital Signs Initial Vital Signs: Vital Signs Temperature 97.1 F L 07/19/21 11:51 Pulse Rate 60 07/19/21 11:51 Respiratory Rate 14 07/19/21 11:51 Pulse Oximetry 99 07/19/21 11:51 Const General: cooperative HENMT Head: normocephalic and atraumatic Ears: external ears normal and TM's normal bilaterally Nose: external nose normal and No nasal discharge Face and sinus: sinuses nontender, face symmetric, no sinus tenderness and No dry mucous membranes Mouth: oral mucosae normal and moist mucous membranes Teeth and gingiva: dentition normal Throat: tonsils normal and uvula midline Eyes General: appearance normal, both eyes and all related structures Eyelids: eyelids normal Conjunctivae: conjunctivae normal Sclera: sclerae normal Pupils: PERRL EOM: EOM intact bilaterally Neck Neck: normal visual inspection, trachea midline, No lymphadenopathy, No midline deformity and No JVD Lymphatic: No lymphedema Chest Chest: normal inspection of the chest Resp Effort & Inspection: normal respiratory effort, able to speak in complete sentences, no respiratory distress and no use of accessory muscles Auscultation: clear to auscultation bilaterally, no rales, no rhonchi and no wheezes Cardio Rate: regular rate Rhythm: regular rhythm Heart Sounds: no click, no gallops, no murmurs and no rubs Pulses: normal peripheral pulses GI Inspection: non-distended Palpation: soft, no hepatosplenomegaly, No guarding, No pulsatile mass and No tender Auscultation: normal bowel sounds Back/Spine/Pelvis Back: No CVA tenderness Cervical Spine: cervical ROM normal and No pain with cervical ROM Thoracic/Lumbar Spine: thoracic and lumbar spine normal to inspection Skin General: no rashes or lesions noted, No jaundice and No petechiae Neuro General: patient alert, patient oriented x3, gait normal and no focal motor deficits Speech: speech normal Extrem General: full ROM, no clubbing, cyanosis or edema, no pedal edema and no calf tenderness Other: Left wrist appear swollen, is tender to palpationin the region of the scaphoid. Range of motion of wrist is limited by pain. Patient is neurovascularly intact. No bruising. Psych Appearance: well kempt Mental Status: mental status grossly normal Attitude: cooperative Thought Content: normal and suicidality Judgment: judgment good <Josemanuel Severino MD - Last Filed: 07/19/21 17:36> Initial Vital Signs Initial Vital Signs: Vital Signs Temperature 97.1 F L 07/19/21 11:51 Pulse Rate 60 07/19/21 11:51 Respiratory Rate 14 07/19/21 11:51 Pulse Oximetry 99 07/19/21 11:51 Course <Boaz Garcia PA-C - Last Filed: 07/19/21 13:36> Course Course Narrative: X-ray negative for fractures, dislocation, disruption surgical hardware. Patient's symptoms likely due to sprain/strain. Will discharge home with follow-up with [facility]. Orders Ordered: ED Orders 07/19/21 11:56 XR wrist LT min 3V Stat 07/19/21 12:14 Basic Metabolic Panel Stat C-Reactive Protein Quant Stat Complete Blood Count AUTO DIFF Stat Erythrocyte Sedimentation Rate Stat Uric Acid Stat Discontinued Medications Ibuprofen (Ibuprofen 400 Mg Tablet) 800 mg PO NOW ONE Stop: 07/19/21 11:57 Last Admin: 07/19/21 12:11 Dose: 800 mg Documented by: MAYTE Vital Signs Vital signs: Vital Signs - 8 hr 07/19/21 11:51 07/19/21 13:30 Temperature 97.1 F L Pulse Rate 60 55 L Respiratory Rate 14 18 Blood Pressure 134/83 Pulse Oximetry 99 98 <Josemanuel Severino MD - Last Filed: 07/19/21 17:36> Orders Ordered: ED Orders 07/19/21 11:56 XR wrist LT min 3V Stat 07/19/21 12:14 Basic Metabolic Panel Stat C-Reactive Protein Quant Stat Complete Blood Count AUTO DIFF Stat Erythrocyte Sedimentation Rate Stat Uric Acid Stat Discontinued Medications Ibuprofen (Ibuprofen 400 Mg Tablet) 800 mg PO NOW ONE Stop: 07/19/21 11:57 Last Admin: 07/19/21 12:11 Dose: 800 mg Documented by: MAYTE Vital Signs Vital signs: Vital Signs - 8 hr 07/19/21 11:51 07/19/21 13:30 Temperature 97.1 F L Pulse Rate 60 55 L Respiratory Rate 14 18 Blood Pressure 134/83 Pulse Oximetry 99 98 MDM - Extremity (Nontraumatic) <Boaz Garcia PA-C - Last Filed: 07/19/21 13:36> Medical Records Attestation: I reviewed the patient's medical records. Lab Data Attestation: I reviewed the patient's lab results. Lab results narrative: Labs within normal limits Result diagrams: 07/19/21 12:14 07/19/21 12:14 Labs: Lab Results 07/19/21 07/19/21 Range/Units 12:14 12:14 WBC 5.9 (4.5-11.0) X10^3/uL RBC 4.91 (4.5-5.9) X10^6/uL Hgb 15.7 (13.5-17.5) g/dL Hct 45.4 (41-53) % MCV 92.4 (80-100) fL MCH 31.9 (26-34) PG MCHC 34.5 (30-36) % RDW 12.8 (11.6-14.8) % Plt Count 217 (150-400) X10^3/uL Neut % (Auto) 60.0 (50-75) % Lymph % (Auto) 28.6 (25-40) % Bureau % (Auto) 8.9 (3-14) % Eos % (Auto) 2.1 (2-4) % Baso % (Auto) 0.4 (0-2) % Neut # (Auto) 3500 (8506-3841) /uL Lymph # (Auto) 1700 (7335-1263) /uL Bureau # (Auto) 500 (0-900) /uL Eos # (Auto) 100 (0-450) /uL Baso # (Auto) 0 (0-100) /uL ESR 2 (0-15) MM/HR Sodium 140 (137-145) mmol/L Potassium 4.6 (3.4-5.1) mmol/L Chloride 102 (98-107) mmol/L Carbon Dioxide 30 (22-32) mmol/L BUN 17 (9-20) mg/dL Creatinine 1.14 (0.66-1.25) mg/dL Estimated GFR > 60.0 (>60) mL/min BUN/Creatinine Ratio 14.9 (6-22) Glucose 90 (70-100) mg/dL Uric Acid 6.2 (3.5-8.5) mg/dL Calcium 9.8 (8.4-10.2) mg/dL C-Reactive Protein < 0.5 (<1.0) mg/dL Imaging Data Extremity x-ray #1: Radiologist's Impression: PROCEDURE:? XR WRIST LT MIN 3V ? INDICATIONS: atraumatic pain ? TECHNIQUE:? 4 views of the wrist were acquired.? ? COMPARISON:? None. ? FINDINGS:? ? Bones:? No fractures or dislocations.? No suspicious bony lesions.? ? Scaphoid view:? Scaphoid fixation is present.? Surgical screw is intact. ? Soft tissues:? No suspicious soft tissue calcifications.? ? IMPRESSION:? Scaphoid fixation. ? No visualized acute fracture or dislocation. However, if clinical concern and/or pain persist, short interval imaging followup in 7-10 days is recommended, as occult injury cannot be definitively excluded. ? Dictated by: Hodan Witt, M.D. on 07/19/2021 at 13:06 ? ? Approved by: Hodan Witt M.D. on 07/19/2021 at 13:08 ? [facility] Narrative Medical decision making narrative: 46-year-old male with no reported past medical history presents to the ED with left-sided wrist pain. Concern for fracture, dislocation, disruption to surgical hardware from prior fixation, sprain/strain. Will obtain x-ray, give ibuprofen for symptoms,reassess. <Josemanuel Severino MD - Last Filed: 07/19/21 17:36> Lab Data Labs: Lab Results 07/19/21 07/19/21 Range/Units 12:14 12:14 WBC 5.9 (4.5-11.0) X10^3/uL RBC 4.91 (4.5-5.9) X10^6/uL Hgb 15.7 (13.5-17.5) g/dL Hct 45.4 (41-53) % MCV 92.4 (80-100) fL MCH 31.9 (26-34) PG MCHC 34.5 (30-36) % RDW 12.8 (11.6-14.8) % Plt Count 217 (150-400) X10^3/uL Neut % (Auto) 60.0 (50-75) % Lymph % (Auto) 28.6 (25-40) % Bureau % (Auto) 8.9 (3-14) % Eos % (Auto) 2.1 (2-4) % Baso % (Auto) 0.4 (0-2) % Neut # (Auto) 3500 (4687-9687) /uL Lymph # (Auto) 1700 (6136-3808) /uL Bureau # (Auto) 500 (0-900) /uL Eos # (Auto) 100 (0-450) /uL Baso # (Auto) 0 (0-100) /uL ESR 2 (0-15) MM/HR Sodium 140 (137-145) mmol/L Potassium 4.6 (3.4-5.1) mmol/L Chloride 102 (98-107) mmol/L Carbon Dioxide 30 (22-32) mmol/L BUN 17 (9-20) mg/dL Creatinine 1.14 (0.66-1.25) mg/dL Estimated GFR > 60.0 (>60) mL/min BUN/Creatinine Ratio 14.9 (6-22) Glucose 90 (70-100) mg/dL Uric Acid 6.2 (3.5-8.5) mg/dL Calcium 9.8 (8.4-10.2) mg/dL C-Reactive Protein < 0.5 (<1.0) mg/dL Discharge Plan Departure Patient Disposition: Home Clinical Impression: Acute wrist pain Qualifiers: Laterality: left Qualified Code(s): M25.532 - Pain in left wrist Instructions: DI for Wrist Pain Activity Restrictions/Additional Instructions: You were evaluated in the ED today for left wrist pain. Your x-ray does not show any evidence of fractures, dislocations. The hardware from the prior surgical fixation appears intact. Your symptoms are likely due to a wrist sprain/strain. It is recommended for you to rest it, apply ice, use a wrist brace, and keep it elevated. You can apply heat after 48 hours. You may follow-up with [facility] at [phone]. Prescriptions: No Action No Known Home Medications RF: 0 Referrals: Geraldine Dubois PA-C [Primary Care Provider] -
[2021-07-19 13:30] VITALS: BP 134/83; PULSE 55; RESP 18; O2SAT 98
== END 2021-07-19 13:33 | disposition home or self-care (01) ==
PROVIDERS: Emergency Medicine; Emergency Provider Student in an Organized Health Care Education/Training Program; PCP Physician Assistant Medical
DX: M25.532 Pain in left wrist (principal)
CPT/HCPCS: 36415; 73110; 80048; 84550; 85025; 85651; 86140; 99284

== ENCOUNTER 2022-10-26 09:47 | Emergency (ER) | payer OTHER, MEDICAID, SELFPAY ==
[2022-10-26 09:55] VITALS: BP 144/93; PULSE 89; RESP 24; TEMP 36.8; O2SAT 97; BMI 25.1
--- NOTE | 2022-10-26 10:01 | DI.RAD.S_ITS ---
PROCEDURE: XR CHEST 2V INDICATIONS: cough/ congestion x 7 days. TECHNIQUE: 2 views of the chest were acquired. COMPARISON: None. FINDINGS: Surgical changes and devices: None. Lungs and pleura: Minimal left lower lobe infiltrate is seen. No pleural effusions or pneumothorax. Mediastinum: Mediastinal contours are normal. Heart size is normal. Bones and chest wall: No suspicious bony abnormalities. Soft tissues appear unremarkable. IMPRESSION: Minimal left lower lobe infiltrate can be seen. Dictated by: Parveen Weaver M.D. on 10/26/2022 at 9:32 Approved by: Parveen Weaver M.D. on 10/26/2022 at 9:33
[2022-10-26] MEDS: ACETAMINOPHEN 325 MG TABLET 975 MG PO (10:05)
[2022-10-26 11:03] LABS: Influenza A - CEPHEID Flu A NEGATIVE (NEGATIVE); Influenza B - CEPHEID Flu B NEGATIVE (NEGATIVE); Respiratory Syncytial Virus Negative (Negative)
[2022-10-26 11:15] LABS: COVID-19 CEPHEID 4-PLEX PCR Negative (Negative)
--- NOTE | 2022-10-26 12:54 | ED.URI ---
HPI - URI/Sore Throat <VITALIY Lang - Last Filed: 10/26/22 15:30> General Chief Complaint: Upper Respiratory Symptoms Stated Complaint: possible pnemonia, Time Seen by Provider: 10/26/22 12:29 Source: patient Mode of arrival: Ambulatory History of Present Illness HPI Narrative: This is a 47-year-old male who presents to the emergency department complaining productive cough, congestion, shortness of breath with intermittent wheeze for the last 3 days. States that he had an upper respiratory infection couple of weeks ago and he has gotten better from that but his symptoms got worse a few days ago. States he feels hot and cold sometimes, denies history of smoking, asthma, COPD or any structural lung disease. Denies history of pneumonia in the past, denies any family or contacts with similar symptoms. Denies chest pain, palpitations dizziness or lightheadedness. Denies history cardiac disease. States he is allergic to latex and anesthetics but his mother told him he was allergic to penicillin as a child. He is not sure if he is allergic to it or not. He denies any recent antibiotics, he goes to [facility] but his previous PCP was EILEEN dubois. Related Data Previous Rx's Medication Instructions Recorded albuterol sulfate 90 mcg/actuation 1 puff inhalation QID PRN 10/26/22 aerosol inhaler shortness of breath or wheezing #8.5 grams guaifenesin 600 mg tablet, 600 mg PO BID PRN productive cough 10/26/22 extended release 12 hr #20 tabs prednisone 20 mg tablet 20 mg PO DAILY #5 tabs 10/26/22 Allergies Allergy/AdvReac Type Severity Reaction Status Date / Time latex Allergy Intermediate Rash Verified 10/26/22 10:00 Anesthetics - Amide Type - Allergy Unknown Verified 10/26/22 10:00 Select A [Anesthetics - Amide Type] Penicillins Allergy Unknown Verified 10/26/22 10:00 Review of Systems <VITALIY Lang - Last Filed: 10/26/22 15:30> Review of Systems ROS Unobtainable: All systems reviewed & are unremarkable except as noted in HPI and below Patient History <VITALIY Lang - Last Filed: 10/26/22 15:30> Surgical History History of repair of ACL History of surgery on wrist Family History Mother Cancer Social History marital status: unmarried,living together household members: significant other occupational status: employed Smoking Status: Former smoker alcohol intake: current substance use type: marijuana Smoking Status: Former smoker alcohol intake frequency: 0-2 drinks per day Substance Use Type: marijuana Exam <VITALIY Lang - Last Filed: 10/26/22 15:30> Narrative Exam Narrative: Reviewed vitals signs and nursing notes. General: cooperative, comfortable, in no acute distress, well groomed HEENT: symmetrical facial expressions, moist mucous membranes Cardiovascular: regular rate and rhythm, no peripheral edema, warm extremities Respiratory: normal effort, tachypnea may 20s without hypoxia, without wheezes, stridor, or rhonchi, left anterior lower lobe without breath sounds, breath sounds clear throughout all other quinones. Productive cough. GI: abdomen soft, nontender to palpation, nondistended, without masses, rebound tenderness or exquisite tenderness with exam. MSK: moves all extremities, neurovascularly intact, no weakness, normal tone Skin: brisk capillary refill, without pallor or erythema Neuro: normal speech and cognition, A&O x3, ambulatory, clear speech Psych: mental status is grossly normal, congruent mood, normal affect, pleasant and cooperative Initial Vital Signs Initial Vital Signs: Vital Signs Temperature 98.3 F 10/26/22 09:55 Pulse Rate 89 10/26/22 09:55 Respiratory Rate 24 10/26/22 09:55 Blood Pressure 144/93 H 10/26/22 09:55 Pulse Oximetry 97 10/26/22 09:55 Oxygen Delivery Method 10/26/22 09:55 <Leno Dwyer MD - Last Filed: 11/01/22 02:08> Initial Vital Signs Initial Vital Signs: Vital Signs Temperature 98.3 F 10/26/22 09:55 Pulse Rate 89 10/26/22 09:55 Respiratory Rate 24 10/26/22 09:55 Blood Pressure 144/93 H 10/26/22 09:55 Pulse Oximetry 97 10/26/22 09:55 Oxygen Delivery Method 10/26/22 09:55 Course <VITALIY Lang - Last Filed: 10/26/22 15:30> Orders Ordered: Discontinued Medications Acetaminophen (Acetaminophen 325 Mg Tablet) 975 mg PO NOW ONE Stop: 10/26/22 10:02 Last Admin: 10/26/22 10:05 Dose: 975 mg Documented By: CHRIS Albuterol (Albuterol Hfa Prepack) 1 box MIS SEEINSTR ONE Stop: 10/26/22 12:49 Last Admin: 10/26/22 13:02 Dose: 1 box Documented By: JESSY Cefdinir (Cefdinir 300 Mg Capsule) 300 mg PO NOW ONE Stop: 10/26/22 12:45 Last Admin: 10/26/22 13:02 Dose: 300 mg Documented By: JESSY Doxycycline Hyclate (Doxycycline Hyclate 100 Mg Tablet) 100 mg PO NOW ONE Stop: 10/26/22 12:45 Last Admin: 10/26/22 13:02 Dose: 100 mg Documented By: CTS Vital Signs Vital signs: Vital Signs - 8 hr 10/26/22 09:55 Temperature 98.3 F Pulse Rate 89 Respiratory Rate 24 Blood Pressure 144/93 H Pulse Oximetry 97 Oxygen Delivery Method Room Air <Leno Dwyer MD - Last Filed: 11/01/22 02:08> Orders Ordered: Discontinued Medications Acetaminophen (Acetaminophen 325 Mg Tablet) 975 mg PO NOW ONE Stop: 10/26/22 10:02 Last Admin: 10/26/22 10:05 Dose: 975 mg Documented By: CHRIS Albuterol (Albuterol Hfa Prepack) 1 box MIS SEEINSTR ONE Stop: 10/26/22 12:49 Last Admin: 10/26/22 13:02 Dose: 1 box Documented By: JESSY Cefdinir (Cefdinir 300 Mg Capsule) 300 mg PO NOW ONE Stop: 10/26/22 12:45 Last Admin: 10/26/22 13:02 Dose: 300 mg Documented By: JESSY Doxycycline Hyclate (Doxycycline Hyclate 100 Mg Tablet) 100 mg PO NOW ONE Stop: 10/26/22 12:45 Last Admin: 10/26/22 13:02 Dose: 100 mg Documented By: CTS Vital Signs Vital signs: Vital Signs - 8 hr 10/26/22 09:55 Temperature 98.3 F Pulse Rate 89 Respiratory Rate 24 Blood Pressure 144/93 H Pulse Oximetry 97 Oxygen Delivery Method Room Air MDM - URI/Sore Throat <VITALIY Lang - Last Filed: 10/26/22 15:30> Lab Data Labs: Lab Results 10/26/22 Range/Units 10:02 SARS-CoV-2 (PCR) Negative (Negative) Influenza A (RT-PCR) Flu a negative (NEGATIVE) Influenza B (RT-PCR) Flu b negative (NEGATIVE) RSV (PCR) Negative (Negative) Imaging Data Chest x-ray: Radiologist's Impression: PROCEDURE:? XR CHEST 2V ? INDICATIONS:? cough/ congestion x 7 days. ? TECHNIQUE:? 2 views of the chest were acquired.? ? COMPARISON:? None. ? FINDINGS:? ? Surgical changes and devices:? None.? ? Lungs and pleura:? Minimal left lower lobe infiltrate is seen.? No pleural effusions or pneumothorax.? ? Mediastinum:? Mediastinal contours are normal.? Heart size is normal.? ? Bones and chest wall:? No suspicious bony abnormalities.? Soft tissues appear unremarkable.? IMPRESSION:? Minimal left lower lobe infiltrate can be seen.? ? Dictated by: Parveen Weaver M.D. on 10/26/2022 at 9:32 ? ? Approved by: Parveen Weaver M.D. on 10/26/2022 at 9:33 ? [facility] Narrative Medical decision making narrative: Chief Complaint: productive cough , congestion This is a 47-year-old male who presents to the emergency department complaining productive cough, congestion, shortness of breath with intermittent wheeze for the last 3 days. States that he had an upper respiratory infection couple of weeks ago and he has gotten better from that but his symptoms got worse a few days ago. States he feels hot and cold sometimes, denies history of smoking, asthma, COPD or any structural lung disease. Differential diagnoses include but are not limited to: COVID, influenza, and others, pneumonia-bacterial or viral, pertussis, asthma/reactive airway exacerbation, allergic reaction, GERD, pharyngitis, bronchitis, COPD exacerbation. I have reviewed the patient's vital signs and nursing notes as well as prior records if available. Pertinent lab findings reviewed: Respiratory PCR is negative for all tested viruses Pertinent Imaging reviewed: Chest x-ray shows a left anterior lower lobe focal opacity Do not suspect underlying cardiopulmonary process. Patient is nontoxic appearing and not in need of emergent medical intervention. Patient is tolerating p.o., no significant medical history, no history of pneumonia, patient has mild tachypnea without hypoxia, wheezing, or shortness of breath. Provided albuterol inhaler with spacer for symptomatic shortness of breath, prescribed Mucinex for productive cough, cefdinir and doxycycline for 5 days b.i.d. for community-acquired pneumonia. Patient reported history of penicillin allergy but not sure if true or not. He was observed 15 minutes after cephalosporin and did not have any allergic reaction. Recommended rest, hydration, tylenol and NSAIDS for fever and/or pain he was given albuterol inhaler with a spacer. Return to ED for worsening symptoms such as SOB, chest pain, inability to take adequate oral fluids, fever, or worsening productive cough. He understands to follow up with his primary care provider and return to the emergency department if his symptoms do not improve. Was given an incentive spirometer, taught how to use it and encouraged to use it frequently until his symptoms are gone. Patient's symptoms improved over duration of stay with above-stated therapies. Social considerations that may affect disposition: none Questions are addressed and there is agreement with the plan and for follow-up. Patient is appropriate for outpatient management. MIPS: This encounter doesn't have any diagnosis' associated with MIPS criteria. <Leno Dwyer MD - Last Filed: 11/01/22 02:08> Lab Data Labs: Lab Results 10/26/22 Range/Units 10:02 SARS-CoV-2 (PCR) Negative (Negative) Influenza A (RT-PCR) Flu a negative (NEGATIVE) Influenza B (RT-PCR) Flu b negative (NEGATIVE) RSV (PCR) Negative (Negative) Discharge Plan Departure Patient Disposition: Home Clinical Impression: Pneumonia Qualifiers: Pneumonia type: due to unspecified organism Laterality: left Lung location: lower lobe of lung Qualified Code(s): J18.9 - Pneumonia, unspecified organism Instructions: How to Use an Incentive Spirometer, Pneumonia-Adult Activity Restrictions/Additional Instructions: *You have been diagnosed with left lower lobe pneumonia. This is likely secondary to your upper respiratory viral infection you had previously. Five days of antibiotics should be adequate, please schedule follow-up with your primary provider if you are still feeling poorly after this course. Use the inhaler every 4-6 hours as needed for shortness of breath and wheezing. You can take Zyrtec 10 mg nightly for congestion, Mucinex 600 mg twice a day for productive cough and it will help thin it. A humidifier can help the secretions not be too tachy. Drink plenty of water, use incentive spirometer frequently to help open up those pockets of alveoli in your lungs that are filled with mucus. You will start to get better soon hopefully. I hope you feel better and it was nice to meet you both. *What to do: *Please continue to take your regular medications as directed. [x ] New medication prescriptions sent to your pharmacy: [[facility] ] [ ] New medication written as a paper prescription [ ] No new medications given *Please follow up with your primary care provider in 2-3 days, call for an appointment. Let them know you were seen in the Emergency Department and that we asked that you be seen for follow-up. We will electronically transmit a record of today's note if your PCP is in our system *If you do not have a primary care provider please contact [phone] to establish care with one of the [facility] primary care providers. *Return to Emergency Department if you should have any new, worsening, or concerning symptoms, such as [fever greater than 101F, chills, worsening pain, persistent vomiting or other bothersome symptoms]. Prescriptions: New albuterol sulfate 90 mcg/actuation HFA aerosol inhaler 1 puff inhalation QID PRN (Reason: shortness of breath or wheezing) Qty: 8.5 0RF guaifenesin 600 mg tablet extended release 12hr 600 mg PO BID PRN (Reason: productive cough) Qty: 20 0RF prednisone 20 mg tablet 20 mg PO DAILY Qty: 5 0RF Rx Instructions: Take 2 tabs today and 1 tab daily thereafter Referrals: [facility] [Provider Group] - 3-5 days Geraldine Dubois PA-C [Primary Care Provider] - Stand Alone Forms: Patient Portal/API <Leno Dwyer MD - Last Filed: 11/01/22 02:08> [facility] Attestation: I was immediately available in the department for consultation. ?This documentation has been reviewed and I agree with assessment and plan. Supervised by Leno Dwyer MD
[2022-10-26] MEDS: DOXYCYCLINE HYCLATE 100 MG TABLET PO (13:02)
[2022-10-26] MEDS: ALBUTEROL HFA PREPACK 1 BOX MISC (13:02)
[2022-10-26] MEDS: CEFDINIR 300 MG CAPSULE PO (13:02)
== END 2022-10-26 13:08 | disposition home or self-care (01) ==
PROVIDERS: Emergency Medicine; Emergency Provider Nurse Practitioner Critical Care Medicine; PCP Physician Assistant Medical
DX: J18.9 Pneumonia, unspecified organism (principal); Z20.822 Contact with and (suspected) exposure to COVID-19
CPT/HCPCS: 0241U; 71046; 99283